=== PATIENT | female | born 1955 | race Caucasian/White ===

== ENCOUNTER 2018-08-07 12:15 | Inpatient (IN) | payer MEDICARE, BC, SELFPAY ==
[2018-08-07 13:04] VITALS: BP 118/58; PULSE 93; RESP 18; TEMP 36.8; O2SAT 93; BMI 19.5
--- NOTE | 2018-08-07 15:09 | PN_ITS ---
Subjective: 62-year-old female remote history of childhood poliomyelitis, who was initially admitted to [facility] with acute hypoxic respiratory failure secondary to community-acquired pneumonia, presented to the emergency department with worsening shortness of breath, lower extremity paresthesia and weakness which started on 07/05/18. Patient was found to be tachypneic with respiratory acidosis and was subsequently intubated and sedated with propofol. EMG done on 07/13 showed evidence of severe sensorimotor peripheral neuropathy without active demyelination suggestive of primary axonal pathology. Repeat EMG showed generalized, chronic demyelinating, sensorimotor peripheral neuropathy with secondary axonal loss and active denervation consistent with AIDP. Patient finished 7 days of plasma exchange on 07/15 and completed 5 days of IVIG on 07/16. She subsequently underwent tracheostomy and PEG tube placement and was weaned to trach collar on 07/22. Patient's hospital course was complicated with acute systolic CHF secondary to Takotsubo cardiomyopathy, status post cardiac cath on 08/04 that showed no coronary artery disease. She was also found to have a EF of 40 to 45%. On metoprolol and lisinopril. She also was found to have pneumonia and sputum culture grew Pseudomonas sp. Patient was started on IV antibiotics and switched to Levaquin for total of 7 days. Vitals here showed temp 98.3F, HR 93, BP 118/58, RR 18, Spo2 93% on room air. Vitals/I&O's: Vital Signs Temp Pulse Resp BP Pulse Ox 98.3 F 93 18 118/58 L 93 08/07/18 13:04 08/07/18 13:04 08/07/18 13:04 08/07/18 13:04 08/07/18 13:04 Oxygen Delivery Method Room Air Weight: 46.8 kg Body Mass Index (BMI) 19.5 General: Alert, Oriented x3, Cooperative HEENT: Atraumatic, PERRLA, EOMI, Normocephalic Neck: Supple, No JVD, Negative Carotid Bruits Lungs: Clear to auscultation, Normal air movement Cardiovascular: Regular rate, No murmurs Abdomen: Bowel Sounds Present, Soft, Non Tender Extremities: No edema, Capillary Refill Less than 3 Seconds Skin: No rashes, No breakdown Musculoskeletal: No Tenderness to Palpation of Joints or Extremities Neurological: Cranial nerves II-XII grossly intact Psych/Mental Status: Normal Affect, Appropriate Current Medications Acetaminophen (Tylenol Liquid) 650 mg GT Q4H PRN PRN PRN Reason: Mild Pain (0-3/10)/Headache Albuterol Sulfate (Ventolin Aerosols) 2.5 mg INHALATION Q6HWA.RT PRN PRN Reason: SHORTNESS OF BREATH Atorvastatin Calcium (Lipitor) 40 mg GT QHS CHARU Bisacodyl (Dulcolax) 10 mg RECTAL .PRN X 1 PRN PRN Reason: Constipation Calamine/Phenol (Calmoseptine Ointment) 1 applic TOPICAL TID CHARU; Protocol Enoxaparin Sodium (Lovenox) 40 mg SC DAILY@0600 CHARU Famotidine (Pepcid) 20 mg GT BID CHARU Guaifenesin (Robitussin) 20 ml GT Q6 [facility] Enteral Nutritional Formula (Jevity 1.5) 1,000 mls @ 40 mls/hr GT .Q25H CHARU Lisinopril (Zestril) 2.5 mg GT DAILY [facility] Lorazepam (Ativan) 0.5 mg GT QHS PRN PRN PRN Reason: Insomnia Magnesium Hydroxide (Milk Of Magnesia) 30 ml GT .PRN X 1 PRN PRN Reason: Constipation Metoprolol Tartrate (Lopressor (Beta Eulalio)) 12.5 mg GT Q8H [facility] Non-Formulary Medication (Gabapentin) 900 mg GT TID [facility] Non-Formulary Medication (Multivitamin With Minerals [Multiple Vitamin]) 1 each GT DAILY [facility] Oxycodone HCl (Oxyir) 5 - 10 mg GT Q4H PRN PRN PRN Reason: SEVERE PAIN (6-10/10) Senna/Docusate Sodium (Senokot-S, Augustina-Colace) 2 tablet GT BID PRN PRN Reason: Constipation Thiamine HCl (Vitamin B1) 100 mg GT DAILY [facility] Assessment/Plan 62-year-old female remote history of childhood poliomyelitis, who was initially admitted to [facility] with acute hypoxic respiratory failure secondary to community-acquired pneumonia, discharged home and presented back to the emergency department 2 days later with worsening shortness of breath, bilateral leg weakness with tingling numbness of the legs and upper extremity and emergently transferred to [facility] where she was managed as 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 Debility status post ADIP, complicated by respiratory failure, status post tracheostomy and PEG, status post plasma exchange and IVIG Admitted for inpatient rehab, continue with PT/OT/ST recommendation, continue with gabapentin 2. Acute respiratory failure status post intubation, tracheostomy, secondary to Guillain-Serrano?/APAP resolved, patient appears stable on room air, continue on breathing treatments 3. Recent acute systolic CHF, EF 40 to 50%, secondary to Takotsubo cardiomyopathy, Ischemia ruled out with negative cardiac cath finding No signs of acute exacerbation on exam, will continue to monitor with daily weights 4. Hypertension, controlled, on metoprolol, lisinopril 5. Hyperlipidemia, on statin 6. Chronic back pain, on oxycodone 7. Malnutrition, moderate, BMI 19.5, on multivitamin, status post tube feeds Nutrition consult 8. Dysphagia, status post PEG tube, speech therapy consulted 9. Former smoker, recently quit whilst being admitted 10. DVT PPx- Lovenox SC Code Visit Inpatient E&M: 14001 Subs Hosp L3
[2018-08-07 16:26] VITALS: BP 118/58; PULSE 93
[2018-08-07] MEDS: Jevity 1.5 1,000 ML 40 ML GT (16:26)
[2018-08-07] MEDS: Metoprolol Tartrate 25 MG Tablet 12.5 MG GT ×2 (16:26→20:41)
[2018-08-07] MEDS: oxyCODONE 5 MG Tablet GT (17:23)
[2018-08-07] MEDS: guaiFENesin 10 ML UDC (200MG/10ML) 20 ML GT ×2 (17:23→23:17)
[2018-08-07 18:00] VITALS: O2SAT 93
[2018-08-07 18:47] VITALS: BP 116/70; PULSE 93; RESP 18; TEMP 36.8; O2SAT 95
[2018-08-07] MEDS: Menthol/Lanolin/Calamine/Znox 113 GM Tube 1 APPLIC TOPICAL (20:40)
[2018-08-07] MEDS: Gabapentin 300 MG Capsule 900 MG GT (20:40)
[2018-08-07 20:41] VITALS: PULSE 93
[2018-08-07] MEDS: Famotidine 20 MG Tablet GT (20:41)
[2018-08-08] MEDS: oxyCODONE 5 MG Tablet GT ×4 (01:25→17:40)
[2018-08-08 06:09] LABS: Anion Gap 5 (5-15); BUN 13 mg/dL (7-18); BUN/Creat Ratio 29.5 RATIO (10-20); Calcium,Total 9.1 mg/dL (8.5-10.1); Chloride 95 mmol/L (98-107); Creatinine, Serum 0.44 mg/dL (0.55-1.02); EST Glomerular Filtration Rate 153 mL/min (>60); Est Glom Filt Rate - Afr Amer 185 mL/min (>60); Estimated Creatinine Clearance 95.43 ml/min; Glucose 128 mg/dL (74-106); Potassium 3.9 mmol/L (3.5-5.1); Sodium Level 134 mmol/L (136-145)
[2018-08-08 06:10] VITALS: PULSE 99
[2018-08-08 06:10] LABS: Absolute Lymphocyte Count 3.08 X10^3/ul (0.83-4.51); Absolute Neutrophil Count 3.9 X10^3/uL (2.0-7.7); Basophil# 0.02 X10^3/uL; Basophil% 0.2 % (0-1); Eosinophil# 0.12 X10^3/uL; Eosinophils% 1.5 % (0-5); Hematocrit 30.1 % (37-47); Hemoglobin 9.6 g/dl (12.0-15.0); Lymphocyte # 3.08 X10^3/ul (4.0); Mean Corp Hgb Conc 31.9 g/gl (32-36); Mean Corpuscular Hgb 31.5 pg (27.0-32.0); Mean Corpuscular Volume 98.7 fL (81-99); Mean Platelet Vol. 9.6 fl (6.2-12.0); Monocyte# 0.97 X10^3/uL; Neutrophil % 48.2 % (47-70); Platelet Count 374 K/mm3 (150-450); RBC Distribution Width CV 14.9 % (11.6-14.6); RBC Distribution Width SD 53.8 fl (35.1-43.9); Red Blood Count 3.05 M/mm3 (4.2-5.4); White Blood Count 8.1 K/mm3 (4.4-11.0)
[2018-08-08] MEDS: Gabapentin 300 MG Capsule 900 MG GT ×3 (06:10→21:56)
[2018-08-08] MEDS: Metoprolol Tartrate 25 MG Tablet 12.5 MG GT ×3 (06:10→21:54)
[2018-08-08] MEDS: guaiFENesin 10 ML UDC (200MG/10ML) 20 ML GT ×3 (06:11→17:40)
[2018-08-08] MEDS: Enoxaparin 40 MG/0.4 ML Syringe SC (06:11)
[2018-08-08] MEDS: Menthol/Lanolin/Calamine/Znox 113 GM Tube 1 APPLIC TOPICAL ×3 (06:11→21:00)
[2018-08-08 06:44] VITALS: BP 110/59; PULSE 99; RESP 18; TEMP 36.8; O2SAT 93
[2018-08-08 06:56] LABS: POSITIVE COUNT NO; POSITIVE DIFFERENTIAL NO; POSITIVE MORPHOLOGY NO
[2018-08-08] MEDS: Famotidine 20 MG Tablet GT ×2 (07:47→21:53)
[2018-08-08] MEDS: Thiamine Hydrochloride 100 MG Tablet GT (07:47)
[2018-08-08] MEDS: Lisinopril 2.5 MG Tablet GT (07:47)
--- NOTE | 2018-08-08 10:45 | HP.PCM.COS_ITS ---
History of Present Illness Date of Admission: 08/07/18 Chief Complaint: Debility secondary to AIDP The patient is a 62 year old F with PMH of tobacco use x 40 year history, cessation June 2018. Admitted to inpatient rehab on 08/07/2018 from debility secondary to IDP., for greater of 3 hours of therapy daily with the goal of returning back home at or near her prior level functional dependence. Patient was recently admitted to [facility] for CAP and hypoxic respiratory failure was treated with IV antibiotics and discharged on a 5-day course of Levaquin. Patient return to ER on July 05, 2018 for worsening SOA, lower extremity paresthesias and weakness. Was afebrile SPO2 98% and intact tympanic at 33 with/sniffs consistently less than -20 and ABG 7.38/49/72. She was intubated and was transferred to [facility] on 07/06/2018. 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 On 07/06/[address] done of head showed no evidence of acute cortical ischemia, mass-effect or intracranial hemorrhage. New enteric and endotracheal tubes are partially visualized. Dr. Kelly, Neurology constuled and patient was diagnosed with a AIDP. Received Plex treatments from 07/08-07/15 and IVIG from 07/16-07/20. On 07/14/2018, Portex tracheostomy size 7 was placed. On 07/15/2018, PEG placement was placed due to dysphagia. On 07/13/2018 NCS showed evidence of severe sensory and motor peripheral neuropathy without active dye limitation primary axonal pathology. Repeat of NCS/EMG on 07/29/2018 showed generalized, chronic, demyelinating sensory motor peripheral polyneuropathy, with secondary axonal loss and active denervation, consistent with AIDP. Patient weaned to trach collar on 07/22/2018. Patient had a cardiac cath on 07/08/2018 showed no CAD. Patient had a reduced EF 40 to 45%, diagnosis of Takotsubo cardiomyopathy, Dr. Wooten cadiologist was consulted and patient started on metoprolol, lisinopril and lipitor. On 07/24/2018 patient had tachycardia with tachypnea. CBC showing leukocytosis with retrocardiac opacity from chest x-ray. Sputum showed Pseudomonas putida. Blood cultures on 07/24/2018 NGTD. IV antibiotics and then changed to Levaquin p.o. x7 days, completed. Patient lives with his spouse in a trilevel home 6 steps for bedroom and bathroom. Patient was independent with all ADLs and transfers prior to hospital admission, but never did drive. 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 Acute left systolic heart failure I50.21 Acute respiratory failure J96.00 Cardiomyopathy I42.9 Dysphagia R13.10 Neuropathic pain of both legs G57.93 Allergies No Known Allergies Allergy (Verified 08/07/18 13:05) Home Medications: Ambulatory Orders Medication Instructions Recorded Atorvastatin Calcium [Lipitor] 40 mg GT DAILY 08/07/18 Famotidine [Pepcid] 20 mg GT BID 08/07/18 Gabapentin 900 mg GT TID 08/07/18 Guaifenesin 20 ml GT Q6H 08/07/18 Lisinopril 2.5 mg GT DAILY 08/07/18 Menthol/Lanolin/Calamine/Znox 1 applic TP TID 08/07/18 [Calmoseptine Ointment] Metoprolol Tartrate [Lopressor 12.5 mg GT Q8H 08/07/18 (Beta Eulalio)] Multivitamin with Minerals 1 each GT DAILY 08/07/18 [Multiple Vitamin] Thiamine HCl 100 mg GT DAILY 08/07/18 Surgical History: herniorrhaphy, - - right hip replacement, post hip fx; tubal ligation Psychiatric History: No pertinent psych hx Lives: Spouse/ Significant Other Smoking Status: Former smoker - x 40 years, cessation 07/05/2018 Tobacco Use: Cigarettes Alcohol: None Drugs: None Review of Systems Constitutional: Denies: Chills, Fever, Weight Change Eyes: Denies: Blurred vision, Cataracts, Double vision, Vision Change HEENT: Reports: Difficulty Swallowing - peg placement. Denies: Difficulty Hearing, Head Aches, Sinus Congestion, Sinus Drainage Cardiovascular: Denies: Chest Pain, Chest Pressure, Chest Tightness, Palpitations Respiratory: Denies: Cough, Shortness of Breath, Shortness of breath at rest, Shortness of breath upon exertion, Sputum production Gastrointestinal: Denies: Abdominal Pain, Nausea, Vomiting Genitourinary: Reports: Incontinence - bladder new onset. Denies: Dysuria Musculoskeletal: Denies: Joint Pain, Joint stiffness, Joint swelling, Joint Tenderness Skin: Denies: Rash, Wounds Neurological: Reports: Numbness - bilateral fingers, intermittent, Tingling. Denies: Focal weakness Psychiatric: Denies: Anxiety, Depression, Homicidal Ideations, Suicidal Ideations Hematologic/ Lymphatic: Denies: Easy Bruising, Easy Bleeding VTE Information - Inpt Only VTE Present on Admission: No VTE Mechan Device Prophylaxis: SCD's, Knee High LINDSEY Hose VTE Pharm Prophylaxis ordered?: Yes Subjective: Per nursing no issues overnight. Per patient able to tolerate therapies and denies pain, SOB, chest pain or tightness, cough, dizziness or lightheadedness. Denies further questions or concerns. - Physical Exam General: Alert, Oriented x3, Cooperative HEENT: Atraumatic, PERRLA Oral: Moist Mucosa Neck: Supple, No JVD Lungs: Clear to auscultation, Normal air movement, Diminished - bases Cardiovascular: Regular rate, Regular Rhythm Abdomen: Bowel Sounds Present, Soft, Non Tender Extremities: No clubbing, No cyanosis, No edema Skin: Ulcer/ Wound - left heel, stage I reddened, blanchable, Excoriated - cocxyx and groin Neurological: Cranial nerves II-XII grossly intact, Deep Tendon Reflexes 2+/4 and Symmetrical, Neuro grossly intact, - - Motor strength RUE 4/5, RLE 3/5. LUE 3/5, LLE 3/5. Psych/Mental Status: Normal Affect, Appropriate, Alert and oriented to time, place, person, mood and affect Vital Signs Temp Pulse Resp BP Pulse Ox 98.3 F 99 18 110/59 L 93 08/08/18 06:44 08/08/18 06:44 08/08/18 06:44 08/08/18 06:44 08/08/18 06:44 Oxygen Delivery Method Room Air Weight: 46.8 kg Body Mass Index (BMI) 19.5 Intake and Output for Last 24 Hours 08/06/18 08/07/18 08/08/18 23:59 23:59 23:59 Intake Total 150 / 150 1020 / 1020 Output Total 550 / 550 300 / 300 Balance -400 / -400 720 / 720 Laboratory Tests Past 24 Hrs 08/08/18 08/08/18 05:20 05:20 WBC 8.1 RBC 3.05 L Hgb 9.6 L Hct 30.1 L MCV 98.7 MCH 31.5 MCHC 31.9 L RDW 14.9 H RDW Differential 53.8 H Plt Count 374 MPV 9.6 Immature Gran % (Auto) 0.100 Neut % (Auto) 48.2 Lymph % (Auto) 38.0 Parmer % (Auto) 12.0 H Eos % (Auto) 1.5 Baso % (Auto) 0.2 Absolute Neuts (auto) 3.9 Absolute Lymphs (auto) 3.08 Total Counted Not Reportable Sodium 134 L Potassium 3.9 Chloride 95 L Carbon Dioxide 34.0 H Anion Gap 5 BUN 13 Creatinine 0.44 L Estim Creat Clear Calc 95.43 Est GFR (MDRD) Af Amer 185 Est GFR (MDRD) Non-Af 153 BUN/Creatinine Ratio 29.5 H Glucose 128 H Calcium 9.1 Assessment/Plan The patient is a 62 year old F with PMH of tobacco use x 40 year history, cessation June 2018. Admitted to inpatient rehab on 08/07/2018 from debility secondary to IDP., for greater of 3 hours of therapy daily with the goal of returning back home at or near her prior level functional dependence. Patient was recently admitted to [facility] for CAP and hypoxic respiratory failure was treated with IV antibiotics and discharged on a 5-day course of Levaquin. Patient return to ER on July 05, 2018 for worsening SOA, lower extremity paresthesias and weakness. Was afebrile SPO2 98% and intact tympanic at 33 with/sniffs consistently less than -20 and ABG 7.38/49/72. She was intubated and was transferred to [facility] on 07/06/2018. 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 On 07/06/[address] done of head showed no evidence of acute cortical ischemia, mass-effect or intracranial hemorrhage. New enteric and endotracheal tubes are partially visualized. Dr. Kelly, Neurology consulted and patient was diagnosed with a AIDP. Received Plex treatments from 07/08-07/15 and IVIG from 07/16-07/20. On 07/14/2018, Portex tracheostomy size 7 was placed. On 07/15/2018, PEG placement was placed due to dysphagia. On 07/13/2018 NCS showed evidence of severe sensory and motor peripheral neuropathy without active dye limitation primary axonal pathology. Repeat of NCS/EMG on 07/29/2018 showed generalized, chronic, demyelinating sensory motor peripheral polyneuropathy, with secondary axonal loss and active denervation, consistent with AIDP. Patient weaned to trach collar on 07/22/2018. Patient had a cardiac cath on 07/08/2018 showed no CAD. Patient had a reduced EF 40 to 45%, diagnosis of Takotsubo cardiomyopathy, Dr. Wooten cadiologist was consulted and patient started on metoprolol, lisinopril and lipitor. On 07/24/2018 patient had tachycardia with tachypnea. CBC showing leukocytosis with retrocardiac opacity from chest x-ray. Sputum showed Pseudomonas putida. Blood cultures on 07/24/2018 NGTD. IV antibiotics and then changed to Levaquin p.o. x7 days, completed. Patient lives with his spouse in a trilevel home 6 steps for bedroom and bathroom. Patient was independent with all ADLs and transfers prior to hospital admission, but never did drive. Plan - PT for mobility - OT for ADLs - ST for dysphagia - Analgesics as needed - AIDP Plex treatment 07/08-07/15 and IVIG treatment 07/16-07/20/2018 - Acute respiratory failure Portex tracheostomy size 7 on 07/14/2018 and trach collar on 07/22/2018. Pulmonary consult - Takotsubo Cardiomyopathy on metoprolol, lisinopril and lipitor - Dysphagia peg placement on 07/15/2018, on Jevity and H2O flushes. Instructor [employer] consult - Polyneuropathy on GBN - Left heel pressure Wound Stage I on admission- Off loading - GI/DVT prophylaxis pepcid/lovenox, knee high lindsey hose, SCDs - Bowel protocol - Fall precautions - Medical management per Hospitalist- consult - F/U with PCP, cardiology, neurology
[2018-08-08 12:29] LABS: AST(SGOT) 26 U/L (15-37); Alanine Aminotransfer ALT/SGPT 33 U/L (13-56); Albumin, Serum 2.3 g/dL (3.2-5.0); Alkaline Phosphatase 103 U/L (45-117); Bilirubin, Direct 0.13 mg/dL (0.00-0.30); Cholesterol 107 mg/dL (200); Globulin 4.8 g/dL (2.2-4.2); High Density Lipoprotein 31 mg/dL; Protein, Total 7.1 g/dL (6.4-8.2); Triglycerides 239 mg/dL; Very Low Density Lipoprotein 48 mg/dL (5-40)
--- NOTE | 2018-08-08 14:29 | PCM.RU.PYE ---
Admission Information Status Changes from Prescreening?: No changes Identified Actual Problem List:: Mobility Impaired, Self Care Deficit Potential Problem List:: DVT, Bleeding, Infection, UTI, Aspiration, Falls, Skin Integrity, Depression Risk of Complications DVT: LMWH, JUDY Hose, Sequential Compression Device Bleeding: Monitor Lab Values, Nursing to Teach Precautions for anti-coagulation therapy., Wound, if applicable, to be assessed every shift., Stroke patients assessed for lethargy or change in status. Infection: Clinical Staff to Monitor for S/S of infection:, S/S of infection include fever, redness, warmth, etc. Urinary Tract Infection: Monitor for frequency, burning, discomfort, or incontinence., Nursing will obtain urine sample for urinalysis and C&S when ordered. Aspiration: Clinical staff will monitor for coughing, drooling, congestion., Speech will evaluate swallowing and dsyphasia., Nursing will monitor patient swallowing during meals. Falls: Patient will be evaluated for Fall Precautions, Patient will be placed on Fall Precautions as indicated per protocol. Skin Breakdown: Nursing will assess skin daily using assessment tool., Nursing will place on Skin Breakdown Precautions as indicated. Pain: Clinical staff will assess patient's pain level per protocol., Medications will be given, if needed, and the pain level reassessed., Other methods: Massage, distraction, decrease stimulus, etc. used PRN. Plan of Care Patient requires physician specializing in physical medicine and rehab oversight to provide close medical supervision of rehab issues including: Pain Management, Sleep Problems, Bowel and Bladder, Medical and co-morbidity Management, DVT prophylaxis, Rehabilitation Leadership, Coordination of treatment team Patient needs Physical Therapy: For a minimum of 1 hour, At least 5 out of 7 days Patient needs Physical Therapy to improve:: Mobility, Mobility, Mobility, Strengthening, Transfers, Stretching, ROM, Endurance, Stairs, Gait, Balance Patient needs Occupational Therapy: For a minimum of 1 hour, At least 5 out of 7 days Patient needs Occupational Therapy to improve ADL's incl.: Eating, Grooming, Bathing, Dressing, Toileting, Toilet transfers, Community Reintegration, Higher functioning activities, Household tasks, Adaptive Equipment, Splinting, Other activities as determined Patient requires speech therapy: For a minimum of 1 hour, At least 5 out of 7 days Patient requires speech therapy for: Swallowing, Cognition, Language Skills, Compensatory Strategies Patient requires 24/ Rehabilitation Nursing for: Pain Issues, Identifying and preventing risk factors, Monitoring and reporting current medical conditions, Assisting with ambulation, transfer, and all ADL's, Teaching patients about disease process and medications, Family teaching, Providing safe environment, Bowel and Bladder Issues, Skin integrity, Medication Management Patient needs Shuttle Veneering Supervisor/ Case Management for: Discharge Planning, Arranging Home Equipment or Services, Family Interventions Patient needs Dietary and Nutrition Services for: Adequate Nutrition, Nutritional Supplements, Nutritional Education Goals Patient will remain: free from falls, or injury at time of discharge. Patient will perform bed mobility at: MOD I level of assist. Patient will complete transfers from bed to chair at: MOD I level of assist. Patient will ambulate: 100 feet, with MOD I assist, with LRD Patient will complete upper body dressing at: MOD I level of assist. Patient will complete lower body dressing at: MOD I level of assist. Patient will complete toileting at: MOD I level of assist. Patient will perform bathing at: MOD I level of assist. Patient will complete grooming at: MOD I level of assist. Patient will complete home management skills at: MOD I level of assist. Patient will achieve: 12 stairs, at MOD I assist Patient will have pain level of: of 3 or less Patient's skin will: remain intact, free from infection. Patient will receive: adequate nutrition. Discharge Planning Pt Prognosis for Sig. Practical Improv. w/in Reasonable Time: Good Estimated Length of stay (days): 16 Anticipated D/C Destination: Home with Outpt Therapy Was Preadmission Assessment Accurate?: Yes
[2018-08-08 14:41] VITALS: PULSE 77
[2018-08-08] MEDS: Jevity 1.5. 1,000 ML Bottle 1000 ML GT (18:07)
[2018-08-08 20:04] VITALS: BP 110/67; PULSE 88; RESP 20; TEMP 36.7; O2SAT 95
[2018-08-08 21:54] VITALS: PULSE 88
[2018-08-08] MEDS: Atorvastatin Calcium 40 MG Tablet GT (21:55)
[2018-08-09] VITALS (7 sets, daily range): BP systolic 92–105; BP diastolic 50–58; PULSE 84–98; RESP 16–98; TEMP 36.8–37; O2SAT 91–97
[2018-08-09] MEDS: guaiFENesin 10 ML UDC (200MG/10ML) 20 ML GT ×3 (00:21→11:38)
[2018-08-09] MEDS: oxyCODONE 5 MG Tablet GT ×4 (01:07→20:47)
[2018-08-09] MEDS: Enoxaparin 40 MG/0.4 ML Syringe SC (05:19)
[2018-08-09] MEDS: Menthol/Lanolin/Calamine/Znox 113 GM Tube 1 APPLIC TOPICAL ×3 (05:22→20:51)
[2018-08-09] MEDS: Gabapentin 300 MG Capsule 900 MG GT ×3 (05:23→20:49)
[2018-08-09] MEDS: Metoprolol Tartrate 25 MG Tablet 12.5 MG GT ×3 (05:24→20:51)
[2018-08-09] MEDS: Lisinopril 2.5 MG Tablet GT (10:19)
[2018-08-09] MEDS: Famotidine 20 MG Tablet GT ×2 (10:19→20:51)
[2018-08-09] MEDS: Thiamine Hydrochloride 100 MG Tablet GT (10:19)
--- NOTE | 2018-08-09 10:37 | PCM.CONS.PUL ---
Reason for Consult Date of Consultation: 08/09/18 Reason for Consultation: Tracheostomy decannulation History of Present Illness: The patient is a 62 year old female, with a history as outlined below, who was admitted to the rehab unit on August 07 following a prolonged hospitalization at in [place], during which time, she was diagnosed with AIDP. The patient's initial presenting symptoms included generalized weakness and swallowing difficulties. The patient was evaluated by Neurology and did require plasmapheresis, coupled with IVIG. On July 14, the patient did require tracheostomy placement. Although initially requiring ventilatory support, the patient was able to be weaned to trach collar on July 22. The patient has no history of any underlying lung pathology. She has not required ventilatory support for quite some time. She is currently maintaining oxygen saturations on room air. Secretions have not been an issue and the patient is able to mount an adequate cough response. Since her arrival to the , the patients cuff has been deflated and she has been capped with a passy wanda valve. The patient denies SOB. She is working aggressively with physical therapy and has a swallow evaluation planned with speech therapy at some point today. 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 Acute left systolic heart failure I50.21 Acute respiratory failure J96.00 Cardiomyopathy I42.9 Dysphagia R13.10 Neuropathic pain of both legs G57.93 Allergies No Known Allergies Allergy (Verified 08/07/18 13:05) Home Medications: Ambulatory Orders Medication Instructions Recorded Atorvastatin Calcium [Lipitor] 40 mg GT DAILY 08/07/18 Famotidine [Pepcid] 20 mg GT BID 08/07/18 Gabapentin 900 mg GT TID 08/07/18 Guaifenesin 20 ml GT Q6H 08/07/18 Lisinopril 2.5 mg GT DAILY 08/07/18 Menthol/Lanolin/Calamine/Znox 1 applic TP TID 08/07/18 [Calmoseptine Ointment] Metoprolol Tartrate [Lopressor 12.5 mg GT Q8H 08/07/18 (Beta Eulalio)] Multivitamin with Minerals 1 each GT DAILY 08/07/18 [Multiple Vitamin] Thiamine HCl 100 mg GT DAILY 08/07/18 Surgical History: herniorrhaphy, - - right hip replacement, post hip fx; tubal ligation Psychiatric History: No pertinent psych hx Lives: Spouse/ Significant Other Smoking Status: Former smoker - x 40 years, cessation 07/05/2018 Tobacco Use: Cigarettes Alcohol: None Drugs: None Review of Systems Constitutional: Denies: Chills, Fever Eyes: Denies: Blurred vision, Double vision HEENT: Denies: Head Aches, Sinus Congestion, Sinus Drainage Cardiovascular: Denies: Chest Pain, Palpitations Respiratory: Denies: Cough, Shortness of Breath Gastrointestinal: Denies: Abdominal Pain, Nausea, Vomiting Genitourinary: Denies: Dysuria Musculoskeletal: Denies: Joint Pain, Joint Tenderness Skin: Denies: Rash, Wounds Neurological: Denies: Numbness, Tingling, Focal weakness Psychiatric: Denies: Anxiety, Depression, Homicidal Ideations, Suicidal Ideations Hematologic/ Lymphatic: Denies: Easy Bruising, Easy Bleeding Objective: The patient's most recent lab work, culture data and imaging studies have all been personally reviewed. - Physical Exam General: Alert, Oriented x3, Cooperative, No apparent distress, - - Sitting in bedside recliner. HEENT: Atraumatic, PERRLA, Normocephalic Oral: No Gingival or Mucosal Lesions/ Ulcerations Neck: Supple, No Nodes, Trachea Midline, - - #7.0 Portex trach in situ with passy-wanda valve in place. No secretions noted. No stridor. Phonation is good. Effective cough present. Cardiovascular: Regular rate, Regular Rhythm, Normal S1, Normal S2, No murmurs Abdomen: Bowel Sounds Present, Soft, Non Tender, - - +PEG Extremities: No clubbing, No cyanosis, No edema Skin: No breakdown Musculoskeletal: No Tenderness to Palpation of Joints or Extremities Lymphatic: No Cervical, Supraclavicular, or Inguinal Adenopathy Neurological: Neuro grossly intact Psych/Mental Status: Normal Affect, Appropriate Vital Signs Temp Pulse Resp BP Pulse Ox 98.2 F 97 18 105/58 L 94 08/09/18 08:14 08/09/18 08:14 08/09/18 08:14 08/09/18 08:14 08/09/18 08:14 Oxygen Delivery Method Room Air Weight: 100 lb Body Mass Index (BMI) 19.5 Intake and Output for Last 24 Hours 08/07/18 08/08/18 08/09/18 23:59 23:59 23:59 Intake Total 150 / 150 2070 / 2070 1324 / 1324 Output Total 550 / 550 1000 / 1000 250 / 250 Balance -400 / -400 1070 / 1070 1074 / 1074 Laboratory Tests Past 24 Hrs 08/08/18 05:20 Total Bilirubin 0.40 Direct Bilirubin 0.13 AST 26 ALT 33 Alkaline Phosphatase 103 Total Protein 7.1 Albumin 2.3 L Globulin 4.8 H Triglycerides 239 H Cholesterol 107 LDL Cholesterol 28 VLDL Cholesterol 48 H HDL Cholesterol 31 L Assessment/Plan RECOMMENDATIONS: 1. Proceed with decannulation. 2. Maintain occlusive dressing while the patient's tracheostomy stoma heals. 3. Bronchodilators as needed. 4. Please call with any questions. IMPRESSIONS: 1. Chronic respiratory failure During the patient's recent prolonged hospitalization, she did require tracheostomy placement due to neuromuscular weakness in the setting of AIDP. This has all improved. The patient has not required any form of ventilatory support for quite some time. Her cuff has been deflated and she has a essentially been on a capping trial since her transfer to the rehab unit, with a passy-wanda valve in place. The patient has no significant secretion production. She does have an effective cough and is maintaining appropriate oxygen saturations on room air. With all of this in mind, I do feel that the patient can be decannulated today. I personally supervised respiratory therapy performing the patient's bedside decannulation. She tolerated the procedure well. Would recommend continuing to place an occlusive dressing while the patient's stoma heals. 2. Personal history of tobacco dependency Bronchodilators can be utilized, if needed. 3. Physical debility secondary to AIDP Defer management to neurology and respective therapy services. Code Visit Inpatient E&M: 29044 Init Hosp L3
--- NOTE | 2018-08-09 11:00 | SP.MBSS_ITS ---
PRIMARY / SECONDARY DIAGNOSIS: Dysphagia REFERRING PHYSICIAN: Dr. Michaud CURRENT DIET: NPO w/ PEG as primary source of nutrition/hydration DENTITION: Natural dentition; Many teeth missing w/ patient indicating that two of her front teeth were knocked out during intubation. MENTAL STATUS: WF for participation in MBS RESPIRATORY STATUS: tracheostomy tube decannulated 08/09/2018 prior to MBS; oxygenating on room air PREVIOUS MODIFIED BARIUM SWALLOW STUDY: n/a REASON FOR REFERRAL: The patient is a 62 year old female who was admitted to [facility] Inpatient Rehab Unit on 08/07/2018 w/ a diagnosis of debility d/t Inflammatory Demyelinating Polyneuropathy, likely AMS ATN variant of GBS. On 07/14/2018, Portex tracheostomy size 7 was placed. On 07/15/2018, PEG placement was placed due to dysphagia. Patient weaned to trach collar on 07/22/2018 w/ initiation of a Passy Melida Speaking Valve shortly thereafter. Portex #7 trach was decannulated on 08/09/2018 prior to MBS. MBS was recommended to objectively assess swallow function under fluoroscopy prior to advancing d/t increased risk for silent aspiration given prolonged intubation w/ trach placement. MEDICAL HISTORY: AIDP (acute inflammatory demyelinating polyneuropathy), Acute left systolic heart failure, Acute respiratory failure, Cardiomyopathy, Dysphagia, Neuropathic pain of both legs and Tobacco use x 40 year history, cessation June 2018 STUDY FINDINGS: Patient participated in a Modified Barium Swallow (MBS) study on 08/09/2018. Dr. Loyd was the radiologist present for this evaluation. This study was recorded in the lateral view and images were sent to PACs for storage. The following consistencies were presented to this patient for analysis of oropharyngeal swallow function: honey thickened liquids and pudding. Results of the MBS are as follows: PENETRATION / ASPIRATION SCALE (MEHTA): 1 = does not enter airway 2 = enters airway/above vocal folds/ejected 3 = enters airway/above vocal folds/not ejected 4 = enters airway/contacts vocal folds/ejected 5 = enters airway/contacts vocal folds/not ejected 6 = enters airway/below vocal folds/ejected 7 = enters airway/below vocal folds/not ejected despite effort 8 = enters airway/below vocal folds/no effort PENETRATION / ASPIRATION SCALE (SCORE): 1. Thin liquid teaspoon: 1 2. Thin liquid teaspoon: 1 3. Thin liquid cup: 1 4. Thin liquid cup sequential swallow: 1 5. Thin liquid straw: 1 6. Puddin 7. Cookie: 1 8. Thin liquid cup: 1 IMPRESSION ORAL PHASE CHARACTERIZED BY: LABIAL SEAL: no labial escape TONGUE CONTROL DURING BOLUS MANIPULATION: cohesive bolus between tongue to palatal seal BOLUS PREPARATION / MASTICATION: slow prolonged chewing/mashing with complete recollection BOLUS TRANSPORT / LINGUAL MOTION: slowed tongue motion ORAL RESIDUE: residue collection on oral structures PHARYNGEAL PHASE CHARACTERIZED BY: INITIATION OF PHARYNGEAL SWALLOW: bolus head in valleculae at first hyoid excursion SOFT PALATE ELEVATION: no bolus between soft palate and pharyngeal wall LARYNGEAL ELEVATION: partial superior movement of thyroid cartilage/partial approximation of arytenoids cartilage to epiglottic petiole ANTERIOR HYOID EXCURSION: partial anterior movement EPIGLOTTIC MOVEMENT: partial epiglottic inversion LARYNGEAL VESTIBULE CLOSURE AT HEIGHT OF SWALLOW: complete laryngeal vestibule closure with no air/contrast in laryngeal vestibule PHARYNGEAL STRIPPING WAVE: pharyngeal stripping wave present / diminished PHARYNGOESOPHAGEAL SEGMENT OPENING: complete distension and complete duration with no obstruction of flow TONGUE BASE RETRACTION: narrow column of contrast between tongue base and posterior pharyngeal wall PHARYNGEAL RESIDUE: collection of residue within or on pharyngeal structures ESOPHAGEAL PHASE CHARACTERIZED BY: ESOPHAGEAL BOLUS CLEARANCE IN THE UPRIGHT POSITION: complete clearance; esophageal coating EFFECTS OF TREATMENT STRATEGIES ATTEMPTED: Double swallow = effective Liquid chaser = effective INTERPRETATION OF RESULTS Patient presents with mild oropharyngeal dysphagia (R13.12) secondary to acute inflammatory demyelinating polyneuropathy s/p intubation/trace placement (decannulated 08/09/2018). Oral phase primarily marked by mild mastication inefficiency w/ prolonged chewing required to adequately break down solid textures boluses d/t limited dentition. A collection of residue remained on the posterior lingual surface post deglutition attributed to a reduction in tongue base retraction/pharyngeal contraction. Pharyngeal phase primarily marked by slight delay in pharyngeal swallow onset timing w/ bolus intermittently reaching the valleculae, this did not impact swallow function or airway protection. Reduced hyolaryngeal excursion (minimal anterior hyoid movement/reduced thyroid elevation) noted, although it did not impact laryngeal vestibule closure/airway protection. Reduced pharyngeal motility / pharyngeal attributed to incomplete tongue base retraction and slightly diminished posterior pharyngeal stripping wave action resulting in pharyngeal retention on the pharyngeal portion of the tongue, within the valleculae and trace within the pyriforms. The patient was able to clear pharyngeal residue effectively w/ use of a dry swallow and/or a liquid wash. No penetration/aspiration appreciated throughout consistencies trialed. RECOMMENDATIONS DIET TEXTURE/LIQUID CONSISTENCY: mechanical soft textures/thin liquids COMPENSATORY STRATEGIES: Seated upright at 90 degrees during PO intake, alternate bites/sips, use dry swallow and liquid wash as needed to clear oral/pharyngeal stasis NEED FOR ADDITIONAL SKILLED SPEECH LANGUAGE INTERVENTION: yes RATIONALE FOR TREATMENT: This patient requires intensive skilled speech-language intervention targeting diet texture management w/ advancement as appropriate, training and implementation of recommended compensatory strategies, and instruction w/ oropharyngeal strengthening exercises targeting pharyngeal motility, base of tongue strength, pharyngeal stripping wave, and hyolaryngeal excursion. ADDITIONAL COMMENTS/RECOMMENDATIONS: Results and recommendations were discussed with the Patient immediately following MBS completion and images were reviewed to improve patient understanding of dysphagia identified and need for continued oropharyngeal dysphagia treatment. The patient verbalizing understanding and agreement with all recommendations and education provided. IMAGE COUNT: [id number]
--- NOTE | 2018-08-09 12:47 | PCM.PN.NEU ---
Subjective: Per nursing no issues overnight, tolerating Jevity via peg. Swallowing study completed today by ST, and diet increased to mechanical soft with thin liquids. Spray Drier Operator aware and recommendations per Jevity and H2O flushes. Patient decannulated today by Dr. Mccloud, tolerating well without trach, in no acute distress. Per patient tolerating therapies and denies further questions or concerns. - Physical Exam General: Alert, Oriented x3, Cooperative HEENT: Atraumatic Oral: Moist Mucosa Neck: Supple, No JVD Lungs: Clear to auscultation, Normal air movement, Diminished - lower bases Cardiovascular: Regular rate, Regular Rhythm Abdomen: Bowel Sounds Present, Soft, Non Tender, - - peg tube Skin: Incision - post trach site, covered with DSD Neurological: Cranial nerves II-XII grossly intact, Neuro grossly intact, - - Motor strength RUE 5/5 and RLE 4/5, LUE and LLE 4/5 Psych/Mental Status: Normal Affect, Appropriate, Alert and oriented to time, place, person, mood and affect Vital Signs Temp Pulse Resp BP Pulse Ox 98.2 F 97 18 105/58 L 91 08/09/18 08:14 08/09/18 08:14 08/09/18 08:14 08/09/18 08:14 08/09/18 12:07 Oxygen Delivery Method Room Air Weight: 45.359 kg Body Mass Index (BMI) 19.5 Intake and Output for Last 24 Hours 08/07/18 08/08/18 08/09/18 23:59 23:59 23:59 Intake Total 150 / 150 2070 / 2070 1524 / 1524 Output Total 550 / 550 1000 / 1000 250 / 250 Balance -400 / -400 1070 / 1070 1274 / 1274 Medical Necessity - Tobacco Use Smoking Status: Former smoker - x 40 years, cessation 07/05/2018 Tobacco Use: Cigarettes Assessment/Plan The patient is a 62 year old F with PMH of tobacco use x 40 year history, cessation June 2018. 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 Patient was recently admitted to [facility] for CAP and hypoxic respiratory failure was treated with IV antibiotics and discharged on a 5-day course of Levaquin. Patient return to ER on July 05, 2018 for worsening SOA, lower extremity paresthesias and weakness. Was afebrile SPO2 98% and intact tympanic at 33 with/sniffs consistently less than -20 and ABG 7.38/49/72. She was intubated and was transferred to [facility] on 07/06/2018. 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 On 07/06/[address] done of head showed no evidence of acute cortical ischemia, mass-effect or intracranial hemorrhage. New enteric and endotracheal tubes are partially visualized. Dr. Kelly, Neurology consulted and patient was diagnosed with a AIDP. Received Plex treatments from 07/08-07/15 and IVIG from 07/16-07/20. On 07/14/2018, Portex tracheostomy size 7 was placed. On 07/15/2018, PEG placement was placed due to dysphagia. On 07/13/2018 NCS showed evidence of severe sensory and motor peripheral neuropathy without active dye limitation primary axonal pathology. Repeat of NCS/EMG on 07/29/2018 showed generalized, chronic, demyelinating sensory motor peripheral polyneuropathy, with secondary axonal loss and active denervation, consistent with AIDP. Patient weaned to trach collar on 07/22/2018. Patient had a cardiac cath on 07/08/2018 showed no CAD. Patient had a reduced EF 40 to 45%, diagnosis of Takotsubo cardiomyopathy, Dr. Wooten cadiologist was consulted and patient started on metoprolol, lisinopril and lipitor. On 07/24/2018 patient had tachycardia with tachypnea. CBC showing leukocytosis with retrocardiac opacity from chest x-ray. Sputum showed Pseudomonas putida. Blood cultures on 07/24/2018 NGTD. IV antibiotics and then changed to Levaquin p.o. x7 days, completed. Patient lives with his spouse in a trilevel home 6 steps for bedroom and bathroom. Patient was independent with all ADLs and transfers prior to hospital admission, but never did drive. Plan - PT for mobility - OT for ADLs - ST for dysphagia - Analgesics as needed - AIDP Plex treatment 07/08-07/15 and IVIG treatment 07/16-07/20/2018 - Acute respiratory failure Portex tracheostomy size 7 on 07/14/2018 and trach collar on 07/22/2018, Decannulated on 08/09/2018 by Field Service Tech - Takotsubo Cardiomyopathy on metoprolol, lisinopril and lipitor - Dysphagia peg placement on 07/15/2018, on Jevity and H2O flushes. Daily weight and I/O. Swallowing evaluation 08/09/18 - Diet: Mechanical soft, thin liquids. Monitor meal percentage intake and Jevity decreased per bail bonding agent recommendations- Spray Drier Operator consult - Polyneuropathy on GBN - Left heel pressure Wound Stage I on admission- Off loading - GI/DVT prophylaxis pepcid/lovenox, knee high lindsey hose, SCDs - Bowel protocol - Fall precautions - Medical management per Hospitalist- consult - F/U with PCP, cardiology, neurology
--- NOTE | 2018-08-09 12:51 | PN.NEURO_ITS ---
Subjective: Per nursing no issues overnight, tolerating Jevity via peg. Swallowing study completed today by ST, and diet increased to mechanical soft with thin liquids. Robotic Welding Operator aware and recommendations per Jevity and H2O flushes. Patient decannulated today by Dr. Mccloud, tolerating well without trach, in no acute distress. Per patient tolerating therapies and denies further questions or concerns. - Physical Exam General: Alert, Oriented x3, Cooperative HEENT: Atraumatic Oral: Moist Mucosa Neck: Supple, No JVD Lungs: Clear to auscultation, Normal air movement, Diminished - lower bases Cardiovascular: Regular rate, Regular Rhythm Abdomen: Bowel Sounds Present, Soft, Non Tender, - - peg tube Skin: Incision - post trach site, covered with DSD Neurological: Cranial nerves II-XII grossly intact, Neuro grossly intact, - - Motor strength RUE 5/5 and RLE 4/5, LUE and LLE 4/5 Psych/Mental Status: Normal Affect, Appropriate, Alert and oriented to time, place, person, mood and affect Vital Signs Temp Pulse Resp BP Pulse Ox 98.2 F 97 18 105/58 L 91 08/09/18 08:14 08/09/18 08:14 08/09/18 08:14 08/09/18 08:14 08/09/18 12:07 Oxygen Delivery Method Room Air Weight: 45.359 kg Body Mass Index (BMI) 19.5 Intake and Output for Last 24 Hours 08/07/18 08/08/18 08/09/18 23:59 23:59 23:59 Intake Total 150 / 150 2070 / 2070 1524 / 1524 Output Total 550 / 550 1000 / 1000 250 / 250 Balance -400 / -400 1070 / 1070 1274 / 1274 Medical Necessity - Tobacco Use Smoking Status: Former smoker - x 40 years, cessation 07/05/2018 Tobacco Use: Cigarettes Assessment/Plan The patient is a 62 year old F with PMH of tobacco use x 40 year history, cessation June 2018. 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 Patient was recently admitted to [facility] for CAP and hypoxic respiratory failure was treated with IV antibiotics and discharged on a 5-day course of Levaquin. Patient return to ER on July 05, 2018 for worsening SOA, lower extremity paresthesias and weakness. Was afebrile SPO2 98% and intact tympanic at 33 with/sniffs consistently less than -20 and ABG 7.38/49/72. She was intubated and was transferred to [facility] on 019. 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 On 07/06/[address] done of head showed no evidence of acute cortical ischemia, mass-effect or intracranial hemorrhage. New enteric and endotracheal tubes are partially visualized. Dr. Kelly, Neurology consulted and patient was diagnosed with a AIDP. Received Plex treatments from 07/08-07/15 and IVIG from 07/16-07/20. On 07/14/2018, Portex tracheostomy size 7 was placed. On 07/15/2018, PEG placement was placed due to dysphagia. On 07/13/2018 NCS showed evidence of severe sensory and motor peripheral neuropathy without active dye limitation primary axonal pathology. Repeat of NCS/EMG on 07/29/2018 showed generalized, chronic, demyelinating sensory motor peripheral polyneuropathy, with secondary axonal loss and active denervation, consistent with AIDP. Patient weaned to trach collar on 07/22/2018. Patient had a cardiac cath on 07/08/2018 showed no CAD. Patient had a reduced EF 40 to 45%, diagnosis of Takotsubo cardiomyopathy, Dr. Wooten cadiologist was consulted and patient started on metoprolol, lisinopril and lipitor. On 07/24/2018 patient had tachycardia with tachypnea. CBC showing leukocytosis with retrocardiac opacity from chest x-ray. Sputum showed Pseudomonas putida. Blood cultures on 07/24/2018 NGTD. IV antibiotics and then changed to Levaquin p.o. x7 days, comple lindsey. Patient lives with his spouse in a trilevel home 6 steps for bedroom and bathroom. Patient was independent with all ADLs and transfers prior to hospital admission, but never did drive. Plan - PT for mobility - OT for ADLs - ST for dysphagia - Analgesics as needed - AIDP Plex treatment 07/08-07/15 and IVIG treatment 07/16-07/20/2018 - Acute respiratory failure Portex tracheostomy size 7 on 07/14/2018 and trach collar on 07/22/2018, Decannulated on 08/09/2018 by Manager Voice - Takotsubo Cardiomyopathy on metoprolol, lisinopril and lipitor - Dysphagia peg placement on 07/15/2018, on Jevity and H2O flushes. Daily weight and I/O. Swallowing evaluation 08/09/18 - Diet: Mechanical soft, thin liquids. Monitor meal percentage intake and Jevity decreased per recreational aide recommendations- Robotic Welding Operator consult - Polyneuropathy on GBN - Left heel pressure Wound Stage I on admission- Off loading - GI/DVT prophylaxis pepcid/lovenox, knee high lindsey hose, SCDs - Bowel protocol - Fall precautions - Medical management per Hospitalist- consult - F/U with PCP, cardiology, neurology
--- NOTE | 2018-08-09 13:00 | RAD_ITS ---
STUDY: SWALLOWING STUDY REASON FOR EXAM: Female, 62 years old. Dysphagia. TECHNIQUE: The examination was performed with Speech Pathology in attendance. Under fluoroscopic observation, the patient ingested thin barium, thick barium, barium pudding, and barium coated cracker. FLUOROSCOPY TIME: 1:47 minutes/seconds. 1739 fluoroscopic images are obtained. RADIOLOGIST INVOLVEMENT: Radiologist was present and providing direct supervision. COMPARISON: None. FINDINGS: The following was observed during swallowing of the various mixtures of barium: Thin Barium: There was no evidence of aspiration or laryngeal penetration. Barium Pudding: There was no evidence of aspiration or laryngeal penetration. Barium Coated Cracker: There was no evidence of aspiration or laryngeal penetration. RAD/Swallowing Function w/Video IMPRESSION: Normal tailored barium swallow study. No evidence of increased risk for aspiration. The swallow study findings were discussed with the patient by the speech pathologist at the conclusion of the examination. Please see speech pathology report for more information and recommendations. Electronically Signed: Bassem Loyd, at 12:25 EDT , Service support ,
[2018-08-09] MEDS: Atorvastatin Calcium 40 MG Tablet GT (20:50)
[2018-08-09] MEDS: Jevity 1.5 1,000 ML 85 ML GT (20:53)
[2018-08-10] VITALS (8 sets, daily range): BP systolic 88–98; BP diastolic 50–56; PULSE 88–102; RESP 14–18; TEMP 36.7–36.9; O2SAT 94–95
[2018-08-10] MEDS: guaiFENesin 10 ML UDC (200MG/10ML) 20 ML GT ×2 (00:41→05:29)
[2018-08-10] MEDS: oxyCODONE 5 MG Tablet GT (03:22)
[2018-08-10] MEDS: Menthol/Lanolin/Calamine/Znox 113 GM Tube 1 APPLIC TOPICAL ×3 (05:27→21:45)
[2018-08-10] MEDS: Gabapentin 300 MG Capsule 900 MG GT (05:28)
[2018-08-10] MEDS: Enoxaparin 40 MG/0.4 ML Syringe SC (05:28)
[2018-08-10] MEDS: Metoprolol Tartrate 25 MG Tablet 12.5 MG GT (05:37)
--- NOTE | 2018-08-10 07:38 | PN_ITS ---
Subjective: Late entry for 08/09/2018 The patient is a 62-year-old female admitted to the rehab unit for a IDP. She had 7 days of plasma exchange and completed 5 days of IVIG. She had tracheostomy and PEG tube placement and was weaned to a trach collar on 07/22. Hospital course was complicated by acute systolic congestive heart failure secondary to Takotsubo cardiomyopathy. Cardiac catheterization was performed on 08/04 and the patient had no significant coronary artery disease. The ejection fraction was decreased at 40 to 45%. Afebrile. Vital signs stable. Pulse ox is 97% on room air. She tells me she was approved for a diet this afternoon and that she is swallowing well. She had a modified barium swallow on 08/09/2018 and I reviewed the speech therapist note. There was no penetration/aspiration appreciated with all the food consistencies trialed. She was placed on a regular diet. She denies chest pain, shortness of breath, cough, abdominal pain, nausea, vomiting. She feels she completely empties her bladder. Denies any bowel complaints. - Physical Exam General: Alert, Oriented x3, Cooperative, No apparent distress, - - She is in her room visiting with her family. HEENT: Atraumatic, PERRLA, EOMI, Normocephalic Oral: Moist Mucosa, No Gingival or Mucosal Lesions/ Ulcerations Neck: Supple, - - Trach site is covered with a gauze. No purulent discharge. Cardiovascular: Regular rate, Regular Rhythm, Normal S1, Normal S2, No murmurs Abdomen: Bowel Sounds Present, Soft, Non Tender, Non-Distended, - - The PEG site has redness, purulent discharge or odor. Extremities: No clubbing, No cyanosis, No edema Skin: No rashes, No breakdown Psych/Mental Status: Normal Affect, Appropriate Vital Signs Temp Pulse Resp BP Pulse Ox 98.6 F 89 98 H 92/50 L 94 08/09/18 21:39 08/10/18 05:37 08/09/18 22:00 08/09/18 21:39 08/10/18 06:50 Oxygen Delivery Method Room Air Weight: 100 lb 15.547 oz Body Mass Index (BMI) 19.5 Intake and Output for Last 24 Hours 08/08/18 08/09/18 08/10/18 23:59 23:59 23:59 Intake Total 2069 2899 / 2899 550 / 550 Output Total 1000 / 1000 1750 / 1750 400 / 400 Balance 1070 / 1070 1149 / 1149 150 / 150 Medical Necessity - Tobacco Use Smoking Status: Former smoker - x 40 years, cessation 07/05/2018 Tobacco Use: Cigarettes Assessment/Plan Impressions 1. ADIP 2. oropharyngeal dysphagia 3. PEG present 4. recent tracheostomy for acute respiratory failure requiring intubation - currently on room air 5. Recent acute systolic congestive heart failure with an EF of 40 to 50% secondary to Takotsubo's cardiomyopathy. Cardiac cath negative for ischemia 6. Hyperlipidemia 7. Chronic back pain on oxycodone 8. Malnutrition 9. Former smoker-recently quit Continue current tx Code Visit Inpatient E&M: 85879 Subs Hosp L2
[2018-08-10] MEDS: Thiamine Hydrochloride 100 MG Tablet GT (10:21)
[2018-08-10] MEDS: Famotidine 20 MG Tablet GT (10:21)
[2018-08-10 11:38] LABS: Anion Gap 3 (5-15); BUN 14 mg/dL (7-18); BUN/Creat Ratio 30.2 RATIO (10-20); Calcium,Total 9.4 mg/dL (8.5-10.1); Chloride 95 mmol/L (98-107); Creatinine, Serum 0.46 mg/dL (0.55-1.02); EST Glomerular Filtration Rate 144 mL/min (>60); Est Glom Filt Rate - Afr Amer 174 mL/min (>60); Estimated Creatinine Clearance 89.33 ml/min; Glucose 80 mg/dL (74-106); Potassium 4.2 mmol/L (3.5-5.1); Sodium Level 134 mmol/L (136-145)
[2018-08-10] MEDS: Gabapentin 300 MG Capsule 900 MG PO ×2 (13:28→21:51)
--- NOTE | 2018-08-10 15:15 | NURSING ---
Dr Harley and Marissa Grissom SILK FOLDER aware of low BP today and patient is asymptomatic.
[2018-08-10] MEDS: oxyCODONE 5 MG Tablet PO ×2 (16:01→21:51)
--- NOTE | 2018-08-10 16:06 | PCM.PN.NEU ---
Subjective: Per nursing no issues overnight. Patient ambulated > 100 ft with walker x min assist this am with therapy, tolerating therapies well. Patient is tolerating mechanical soft diet with thin liquids. No s/sx of aspiration noted. Prior to hospitalizations patient was not on antihypertensives. Hospitalist aware of lower blood pressure readings and will adjust as needed per nursing staff. Patient tolerating well without trach, in no acute distress. Denies further questions or concerns. - Physical Exam General: Alert, Oriented x3, Cooperative HEENT: Atraumatic, PERRLA Oral: Moist Mucosa Neck: Supple, No JVD Lungs: Clear to auscultation, Normal air movement Cardiovascular: Regular rate, Regular Rhythm Abdomen: Bowel Sounds Present, Soft, Non Tender, - - peg tube intact without redness Extremities: No clubbing, No cyanosis, No edema, Edema Skin: Ulcer/ Wound - left heel Stage [address], Incision - healing post trach site, covered with DSD Neurological: Cranial nerves II-XII grossly intact, Neuro grossly intact, Motor Exam 5/5 strength throughout - Excpet BLE 4/5 Psych/Mental Status: Normal Affect, Appropriate, Alert and oriented to time, place, person, mood and affect Vital Signs Temp Pulse Resp BP Pulse Ox 98.0 F 90 18 91/55 L 94 08/10/18 10:00 08/10/18 13:27 08/10/18 10:00 08/10/18 13:27 08/10/18 10:00 Oxygen Delivery Method Room Air Weight: 45.8 kg Body Mass Index (BMI) 19.5 Intake and Output for Last 24 Hours 08/08/18 08/09/18 08/10/18 23:59 23:59 23:59 Intake Total 2070 / 2070 2899 / 2899 1420 / 1420 Output Total 1000 / 1000 1750 / 1750 400 / 400 Balance 1070 / 1070 1149 / 1149 1020 / 1020 Laboratory Tests Past 24 Hrs 08/10/18 11:15 Sodium 134 L Potassium 4.2 Chloride 95 L Carbon Dioxide 36.0 H Anion Gap 3 L BUN 14 Creatinine 0.46 L Estim Creat Clear Calc 89.33 Est GFR (MDRD) Af Amer 174 Est GFR (MDRD) Non-Af 144 BUN/Creatinine Ratio 30.2 H Glucose 80 Calcium 9.4 Medical Necessity - Tobacco Use Smoking Status: Former smoker - x 40 years, cessation 07/05/2018 Tobacco Use: Cigarettes Assessment/Plan The patient is a 62 year old F with PMH of tobacco use x 40 year history, cessation June 2018. 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 Patient was recently admitted to [facility] for CAP and hypoxic respiratory failure was treated with IV antibiotics and discharged on a 5-day course of Levaquin. Patient return to ER on July 05, 2018 for worsening SOA, lower extremity paresthesias and weakness. Was afebrile SPO2 98% and intact tympanic at 33 with/sniffs consistently less than -20 and ABG 7.38/49/72. She was intubated and was transferred to [facility] on 07/06/2018. 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 On 07/06/[address] done of head showed no evidence of acute cortical ischemia, mass-effect or intracranial hemorrhage. New enteric and endotracheal tubes are partially visualized. Dr. Kelly, Neurology consulted and patient was diagnosed with a AIDP. Received Plex treatments from 07/08-07/15 and IVIG from 07/16-07/20. On 07/14/2018, Portex tracheostomy size 7 was placed. On 07/15/2018, PEG placement was placed due to dysphagia. On 07/13/2018 NCS showed evidence of severe sensory and motor peripheral neuropathy without active dye limitation primary axonal pathology. Repeat of NCS/EMG on 07/29/2018 showed generalized, chronic, demyelinating sensory motor peripheral polyneuropathy, with secondary axonal loss and active denervation, consistent with AIDP. Patient weaned to trach collar on 07/22/2018. Patient had a cardiac cath on 07/08/2018 showed no CAD. Patient had a reduced EF 40 to 45%, diagnosis of Takotsubo cardiomyopathy, Dr. Wooten cadiologist was consulted and patient started on metoprolol, lisinopril and lipitor. On 07/24/2018 patient had tachycardia with tachypnea. CBC showing leukocytosis with retrocardiac opacity from chest x-ray. Sputum showed Pseudomonas putida. Blood cultures on 07/24/2018 NGTD. IV antibiotics and then changed to Levaquin p.o. x7 days, completed. Patient lives with his spouse in a trilevel home 6 steps for bedroom and bathroom. Patient was independent with all ADLs and transfers prior to hospital admission, but never did drive. Plan - PT for mobility - OT for ADLs - ST for dysphagia - Analgesics as needed - AIDP Plex treatment 07/08-07/15 and IVIG treatment 07/16-07/20/2018 - Acute respiratory failure Portex tracheostomy size 7 on 07/14/2018 and trach collar on 07/22/2018, Decannulated on 08/09/2018 by Decommissioning Well Site Manager - Takotsubo Cardiomyopathy on metoprolol, lisinopril and lipitor - Dysphagia peg placement on 07/15/2018, on Jevity and H2O flushes. Daily weight and I/O. Swallowing evaluation 08/09/18 - Diet: Mechanical soft, thin liquids. Monitor meal percentage intake and Jevity decreased per granulator operator recommendations- Posting Specialist consult - Polyneuropathy on GBN - Left heel pressure Wound Stage I on admission- Off loading, mepliex - GI/DVT prophylaxis pepcid/lovenox, knee high lindsey hose, SCDs - Bowel protocol - Fall precautions - Medical management per Hospitalist- consult - F/U with PCP, cardiology, neurology
[2018-08-10] MEDS: Jevity 1.5 1,000 ML 85 ML GT (20:06)
[2018-08-10] MEDS: Atorvastatin Calcium 40 MG Tablet PO (21:51)
[2018-08-10] MEDS: Famotidine 20 MG Tablet PO (21:51)
--- NOTE | 2018-08-10 21:59 | NURSING ---
Dr. Gauthier notified of pt's currents blood pressure and pulse. Order given to hold tonight's dose of lopressor.
--- NOTE | 2018-08-11 04:48 | NURSING ---
REVIEWED AND AGREE WITH MILLING GENERAL SUPERINTENDENT FIMS AND HANDOFF CHARTING.
[2018-08-11] MEDS: Gabapentin 300 MG Capsule 900 MG PO ×3 (05:44→21:29)
[2018-08-11] MEDS: Menthol/Lanolin/Calamine/Znox 113 GM Tube 1 APPLIC TOPICAL ×3 (05:44→21:35)
[2018-08-11] MEDS: Enoxaparin 40 MG/0.4 ML Syringe SC (05:44)
[2018-08-11] MEDS: oxyCODONE 5 MG Tablet PO ×3 (05:44→21:33)
[2018-08-11 07:14] VITALS: BP 85/45; BP 91/45; BP 93/49; PULSE 87; PULSE 89; PULSE 99
[2018-08-11 08:38] VITALS: BP 128/72; PULSE 95; RESP 16; TEMP 36.6; O2SAT 94
--- NOTE | 2018-08-11 09:52 | PCM.PN.NEU ---
Subjective: Per nursing spoke with hospitalist, positive orthostatics and orders received for NS bolus and blood pressure medication adjustments. Per patient only had dizziness upon am when getting OOB, but quickly resolved. Denied further questions or concerns. - Physical Exam General: Alert, Oriented x3 HEENT: Atraumatic, PERRLA Oral: Moist Mucosa Neck: Supple, No JVD Lungs: Clear to auscultation, Normal air movement Cardiovascular: Regular rate, Regular Rhythm Abdomen: Bowel Sounds Present, Soft, Non Tender, - - peg tube intact, without redness or drng Extremities: No clubbing, No cyanosis, No edema Skin: Ulcer/ Wound - Ulcer/ Wound - left heel Stage [address],, Incision - healing post trach site, covered with DSD Musculoskeletal: No Tenderness to Palpation of Joints or Extremities Neurological: Cranial nerves II-XII grossly intact, Motor Exam 5/5 strength throughout - Except BLE 4/5 strength Psych/Mental Status: Normal Affect, Appropriate, Alert and oriented to time, place, person, mood and affect Vital Signs Temp Pulse Resp BP Pulse Ox 97.9 F 95 16 128/72 H 94 08/11/18 08:38 08/11/18 08:38 08/11/18 08:38 08/11/18 08:38 08/11/18 08:38 Oxygen Delivery Method Room Air Weight: 45.8 kg Body Mass Index (BMI) 19.5 Orthostatic Vital Signs Start: 08/11/18 07:14 Freq: q24h Status: Active Protocol: Activity Type Activity Date Activity User E-Sign Co-Sign Detail Recorded Client Recorded Date Recorded By Document 08/11/18 07:14 AO [id number] 08/11/18 07:15 AO 08/11/18 07:14 Orthostatic Vitals Standing -Blood Pressure (90/60-120/80) 85/45 L -Pulse Rate (60-100) 99 Sitting -Blood Pressure (90/60-120/80) 93/49 L -Pulse Rate (60-100) 87 Lying -Blood Pressure (90/60-120/80) 91/45 L -Pulse Rate (60-100) 89 Intake and Output for Last 24 Hours 08/09/18 08/10/18 08/11/18 23:59 23:59 23:59 Intake Total 2899 / 2899 2265 / 2265 855 / 855 Output Total 1750 / 1750 400 / 400 Balance 1149 / 1149 1865 / 1865 855 / 855 Laboratory Tests Past 24 Hrs 08/10/18 11:15 Sodium 134 L Potassium 4.2 Chloride 95 L Carbon Dioxide 36.0 H Anion Gap 3 L BUN 14 Creatinine 0.46 L Estim Creat Clear Calc 89.33 Est GFR (MDRD) Af Amer 174 Est GFR (MDRD) Non-Af 144 BUN/Creatinine Ratio 30.2 H Glucose 80 Calcium 9.4 Medical Necessity - Tobacco Use Smoking Status: Former smoker - x 40 years, cessation 07/05/2018 Tobacco Use: Cigarettes Assessment/Plan The patient is a 62 year old F with PMH of tobacco use x 40 year history, cessation June 2018. 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 Patient was recently admitted to [facility] for CAP and hypoxic respiratory failure was treated with IV antibiotics and discharged on a 5-day course of Levaquin. Patient return to ER on July 05, 2018 for worsening SOA, lower extremity paresthesias and weakness. Was afebrile SPO2 98% and intact tympanic at 33 with/sniffs consistently less than -20 and ABG 7.38/49/72. She was intubated and was transferred to [facility] on 07/06/2018. 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 On 07/06/[address] done of head showed no evidence of acute cortical ischemia, mass-effect or intracranial hemorrhage. New enteric and endotracheal tubes are partially visualized. Dr. Kelly, Neurology consulted and patient was diagnosed with a AIDP. Received Plex treatments from 07/08-07/15 and IVIG from 07/16-07/20. On 07/14/2018, Portex tracheostomy size 7 was placed. On 07/15/2018, PEG placement was placed due to dysphagia. On 07/13/2018 NCS showed evidence of severe sensory and motor peripheral neuropathy without active dye limitation primary axonal pathology. Repeat of NCS/EMG on 07/29/2018 showed generalized, chronic, demyelinating sensory motor peripheral polyneuropathy, with secondary axonal loss and active denervation, consistent with AIDP. Patient weaned to trach collar on 07/22/2018. Patient had a cardiac cath on 07/08/2018 showed no CAD. Patient had a reduced EF 40 to 45%, diagnosis of Takotsubo cardiomyopathy, Dr. Wooten cadiologist was consulted and patient started on metoprolol, lisinopril and lipitor. On 07/24/2018 patient had tachycardia with tachypnea. CBC showing leukocytosis with retrocardiac opacity from chest x-ray. Sputum showed Pseudomonas putida. Blood cultures on 07/24/2018 NGTD. IV antibiotics and then changed to Levaquin p.o. x7 days, completed. Patient lives with his spouse in a trilevel home 6 steps for bedroom and bathroom. Patient was independent with all ADLs and transfers prior to hospital admission, but never did drive. Plan - PT for mobility - OT for ADLs - ST for dysphagia - Analgesics as needed - AIDP Plex treatment 07/08-07/15 and IVIG treatment 07/16-07/20/2018 - Acute respiratory failure Portex tracheostomy size 7 on 07/14/2018 and trach collar on 07/22/2018, Decannulated on 08/09/2018 by Surface Boss - Takotsubo Cardiomyopathy on metoprolol, lisinopril and lipitor - Dysphagia peg placement on 07/15/2018, on Jevity and H2O flushes. Daily weight and I/O. Swallowing evaluation 08/09/18 - Diet: Mechanical soft, thin liquids. Monitor meal percentage intake and Jevity decreased per exercise manager recommendations- Data Collection Specialist consult - Polyneuropathy on GBN - Left heel pressure Wound Stage I on admission- Off loading, mepliex - GI/DVT prophylaxis pepcid/lovenox, knee high lindsey hose, SCDs - Positive orthostatics NS bolus and BP meds adjustment per hospitalist - Bowel protocol - Fall precautions - Medical management per Hospitalist- consult - F/U with PCP, cardiology, neurology
--- NOTE | 2018-08-11 10:02 | PN.NEURO_ITS ---
Subjective: Per nursing spoke with hospitalist, positive orthostatics and orders received for NS bolus and blood pressure medication adjustments. Per patient only had dizziness upon am when getting OOB, but quickly resolved. Denied further questions or concerns. - Physical Exam General: Alert, Oriented x3 HEENT: Atraumatic, PERRLA Oral: Moist Mucosa Neck: Supple, No JVD Lungs: Clear to auscultation, Normal air movement Cardiovascular: Regular rate, Regular Rhythm Abdomen: Bowel Sounds Present, Soft, Non Tender, - - peg tube intact, without redness or drng Extremities: No clubbing, No cyanosis, No edema Skin: Ulcer/ Wound - Ulcer/ Wound - left heel Stage [address],, Incision - healing post trach site, covered with DSD Musculoskeletal: No Tenderness to Palpation of Joints or Extremities Neurological: Cranial nerves II-XII grossly intact, Motor Exam 5/5 strength throughout - Except BLE 4/5 strength Psych/Mental Status: Normal Affect, Appropriate, Alert and oriented to time, place, person, mood and affect Vital Signs Temp Pulse Resp BP Pulse Ox 97.9 F 95 16 128/72 H 94 08/11/18 08:38 08/11/18 08:38 08/11/18 08:38 08/11/18 08:38 08/11/18 08:38 Oxygen Delivery Method Room Air Weight: 45.8 kg Body Mass Index (BMI) 19.5 Orthostatic Vital Signs Start: 08/11/18 07:14 Freq: q24h Status: Active Protocol: Activity Type Activity Date Activity User E-Sign Co-Sign Detail Recorded Client Recorded Date Recorded By Document 08/11/18 07:14 AO [id number] 08/11/18 07:15 AO 08/11/18 07:14 Orthostatic Vitals Standing -Blood Pressure (90/60-120/80) 85/45 L -Pulse Rate (60-100) 99 Sitting -Blood Pressure (90/60-120/80) 93/49 L -Pulse Rate (60-100) 87 Lying -Blood Pressure (90/60-120/80) 91/45 L -Pulse Rate (60-100) 89 Intake and Output for Last 24 Hours 08/09/18 08/10/18 08/11/18 23:59 23:59 23:59 Intake Total 2899 / 2899 2265 / 2265 855 / 855 Output Total 1750 / 1750 400 / 400 Balance 1149 / 1149 1865 / 1865 855 / 855 Laboratory Tests Past 24 Hrs 08/10/18 11:15 Sodium 134 L Potassium 4.2 Chloride 95 L Carbon Dioxide 36.0 H Anion Gap 3 L BUN 14 Creatinine 0.46 L Estim Creat Clear Calc 89.33 Est GFR (MDRD) Af Amer 174 Est GFR (MDRD) Non-Af 144 BUN/Creatinine Ratio 30.2 H Glucose 80 Calcium 9.4 Medical Necessity - Tobacco Use Smoking Status: Former smoker - x 40 years, cessation 07/05/2018 Tobacco Use: Cigarettes Assessment/Plan The patient is a 62 year old F with PMH of tobacco use x 40 year history, cessation June 2018. 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 Patient was recently admitted to [facility] for CAP and hypoxic respiratory failure was treated with IV antibiotics and discharged on a 5-day course of Levaquin. Patient return to ER on July 05, 2018 for worsening SOA, lower extremity paresthesias and weakness. Was afebrile SPO2 98% and intact tympanic at 33 with/sniffs consistently less than -20 and ABG 7.38/49/72. She was intubated and was transferred to [facility] on 07/06/2018. 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 On 07/06/[address] done of head showed no evidence of acute cortical ischemia, mass-effect or intracranial hemorrhage. New enteric and endotracheal tubes are partially visualized. Dr. Kelly, Neurology consulted and patient was diagnosed with a AIDP. Received Plex treatments from 07/08-07/15 and IVIG from 07/16-07/20. On 07/14/2018, Portex tracheost sussy size 7 was placed. On 07/15/2018, PEG placement was placed due to dysphagia. On 07/13/2018 NCS showed evidence of severe sensory and motor peripheral neuropathy without active dye limitation primary axonal pathology. Repeat of NCS/EMG on 07/29/2018 showed generalized, chronic, demyelinating sensory motor peripheral polyneuropathy, with secondary axonal loss and active denervation, consistent with AIDP. Patient weaned to trach collar on 07/22/2018. Patient had a cardiac cath on 07/08/2018 showed no CAD. Patient had a reduced EF 40 to 45%, diagnosis of Takotsubo cardiomyopathy, Dr. Wooten cadiologist was consulted and patient started on metoprolol, lisinopril and lipitor. On 07/24/2018 patient had tachycardia with tachypnea. CBC showing leukocytosis with retrocardiac opacity from chest x-ray. Sputum showed Pseudomonas putida. Blood cultures on 07/24/2018 NGTD. IV antibiotics and then changed to Levaquin p.o. x7 days, completed. Patient lives with his spouse in a trilevel home 6 steps for bedroom and bathroom. Patient was independent with all ADLs and transfers prior to hospital admission, but never did drive. Plan - PT for mobility - OT for ADLs - ST for dysphagia - Analgesics as needed - AIDP Plex treatment 07/08-07/15 and IVIG treatment 07/16-07/20/2018 - Acute respiratory failure Portex tracheostomy size 7 on 07/14/2018 and trach collar on 07/22/2018, Decannulated on 08/09/2018 by Avionics Systems Repairer - Takotsubo Cardiomyopathy on metoprolol, lisinopril and lipitor - Dysphagia peg placement on 07/15/2018, on Jevity and H2O flushes. Daily weight and I/O. Swallowing evaluation 08/09/18 - Diet: Mechanical soft, thin liquids. Monitor meal percentage intake and Jevity decreased per golf caddie recommendations- Tufter Hand consult - Polyneuropathy on GBN - Left heel pressure Wound Stage I on admission- Off loading, mepliex - GI/DVT prophylaxis pepcid/lovenox, knee high lindsey hose, SCDs - Positive orthostatics NS bolus and BP meds adjustment per hospitalist - Bowel protocol - Fall precautions - Medical management per Hospitalist- consult - F/U with PCP, cardiology, neurology
[2018-08-11] MEDS: Famotidine 20 MG Tablet PO ×2 (10:31→21:29)
[2018-08-11] MEDS: Thiamine Hydrochloride 100 MG Tablet PO (10:32)
[2018-08-11] MEDS: 0.9% Normal Saline 1,000 ML 500 ML IV (11:17)
--- NOTE | 2018-08-11 12:33 | CASEMGMT ---
Social Work IDT met with patient and spouse for Team meeting. Therapy discussed progress, but still working on stairs, becoming more independent, and balance. Nursing monitoring BP and fluids. Notified patient and spouse Medicare has ELOS for 30 days. Will reteam next week and continue progressing. Patient's goal is to return home with spouse at prior independence. Discharge plans remain ongoing at this time. Will continue to follow. EVA Acosta
[2018-08-11 14:08] VITALS: BP 96/54; PULSE 93; RESP 16
[2018-08-11 16:08] VITALS: BP 96/54; PULSE 93
[2018-08-11] MEDS: Jevity 1.5 1,000 ML 85 ML GT (19:45)
[2018-08-11] MEDS: Atorvastatin Calcium 40 MG Tablet PO (21:29)
[2018-08-11] MEDS: Midodrine HCl 5 MG Tablet 2.5 MG PO (21:29)
[2018-08-11 22:00] VITALS: BP 108/55; PULSE 106; RESP 16; TEMP 36.8; O2SAT 97
[2018-08-12] MEDS: Enoxaparin 40 MG/0.4 ML Syringe SC (05:15)
[2018-08-12] MEDS: Midodrine HCl 5 MG Tablet 2.5 MG PO ×2 (05:16→15:32)
[2018-08-12] MEDS: Gabapentin 300 MG Capsule 900 MG PO ×3 (05:16→20:24)
[2018-08-12] MEDS: Menthol/Lanolin/Calamine/Znox 113 GM Tube 1 APPLIC TOPICAL ×3 (05:17→20:25)
[2018-08-12 07:00] VITALS: BP 116/66; PULSE 81; RESP 14; TEMP 36.6; O2SAT 98
[2018-08-12] MEDS: Thiamine Hydrochloride 100 MG Tablet PO (08:05)
[2018-08-12] MEDS: Famotidine 20 MG Tablet PO ×2 (08:05→20:24)
[2018-08-12] MEDS: Acetaminophen 325 MG Tablet 650 MG PO ×2 (11:47→16:09)
--- NOTE | 2018-08-12 13:00 | PN.NEURO_ITS ---
Subjective: Per nursing no issues overnight. Per patient tolerating therapies well and denies dizziness, lightheadedness, headache or vision change. Hospitalist discontinued Lopressor and lisinopril and added midodrine due to blood pressures on low side. Patient denies further questions or concerns. - Physical Exam General: Alert, Oriented x3, Cooperative HEENT: Atraumatic, PERRLA Oral: Moist Mucosa Neck: Supple, No JVD Lungs: Clear to auscultation, Normal air movement Cardiovascular: Regular rate, Regular Rhythm Abdomen: Bowel Sounds Present, Soft, Non Tender, - - peg intact without redness or drng Extremities: No clubbing, No cyanosis, No edema Skin: Ulcer/ Wound - Left heel stage I - mepliex, - - post trach site healing- DSD Musculoskeletal: No Tenderness to Palpation of Joints or Extremities Neurological: Cranial nerves II-XII grossly intact, - - Motor strength RUE and LUE 5/5, RLE and LLE 4/5. Reflexes absent to petallar and achilles. Psych/Mental Status: Normal Affect, Appropriate, Alert and oriented to time, place, person, mood and affect Vital Signs Temp Pulse Resp BP Pulse Ox 97.8 F 81 14 116/66 98 08/12/18 07:00 08/12/18 07:00 08/12/18 07:00 08/12/18 07:00 08/12/18 07:00 Oxygen Delivery Method Room Air Weight: 45.359 kg Body Mass Index (BMI) 19.5 Orthostatic Vital Signs Start: 08/11/18 07:14 Freq: q24h Status: Active Protocol: Activity Type Activity Date Activity User E-Sign Co-Sign Detail Recorded Client Recorded Date Recorded By Document 08/11/18 07:14 AO [id number] 08/11/18 07:15 AO 08/11/18 07:14 Orthostatic Vitals Standing -Blood Pressure (90/60-120/80) 85/45 L -Pulse Rate (60-100) 99 Sitting -Blood Pressure (90/60-120/80) 93/49 L -Pulse Rate (60-100) 87 Lying -Blood Pressure (90/60-120/80) 91/45 L -Pulse Rate (60-100) 89 Intake and Output for Last 24 Hours 06/05/19 06/06/19 06/07/19 23:59 23:59 23:59 Intake Total 2265 / 2265 2305 / 2305 1485 / 1485 Output Total 400 / 400 700 / 700 900 / 900 Balance 1865 / 1865 1605 / 1605 585 / 585 Medical Necessity - Tobacco Use Smoking Status: Former smoker - x 40 years, cessation 07/05/2018 Tobacco Use: Cigarettes Assessment/Plan The patient is a 62 year old F with PMH of tobacco use x 40 year history, cessation June 2018. 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 Patient was recently admitted to [facility] for CAP and hypoxic respiratory failure was treated with IV antibiotics and discharged on a 5-day course of Levaquin. Patient return to ER on July 05, 2018 for worsening SOA, lower extremity paresthesias and weakness. Was afebrile SPO2 98% and intact tympanic at 33 with/sniffs consistently less than -20 and ABG 7.38/49/72. She was intubated and was transferred to [facility] on 07/06/2018. 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 On 07/06/[address] done of head showed no evidence of acute cortical ischemia, mass-effect or intracranial hemorrhage. New enteric and endotracheal tubes are partially visualized. Dr. Kelly, Neurology consulted and patient was diagnosed with a AIDP. Received Plex treatments from 07/08-07/15 and IVIG from 07/16-07/20. On 07/14/2018, Portex tracheostomy size 7 was placed. On 07/15/2018, PEG placement was placed due to dysphagia. On 07/13/2018 NCS showed evidence of severe sensory and motor peripheral neuropathy without active dye limitation primary axonal pathology. Repeat of NCS/EMG on 07/29/2018 showed generalized, chronic, demyelinating sensory motor peripheral polyneuropathy, with secondary axonal loss and active denervation, consistent with AIDP. Patient weaned to trach collar on 07/22/2018. Patient had a cardiac cath on 07/08/2018 showed no CAD. Patient had a reduced EF 40 to 45%, diagnosis of Takotsubo cardiomyopathy, Dr. Wooten cadiologist was consulted and patient started on metoprolol, lisinopril and lipitor. On 07/24/2018 patient had tachycardia with tachypnea. CBC showing leukocytosis with retrocardiac opacity from chest x-ray. Sputum showed Pseudomonas putida. Blood cultures on 07/24/2018 NGTD. IV antibiotics and then changed to Levaquin p.o. x7 days, completed. Patient lives with his spouse in a trilevel home 6 steps for bedroom and bathroom. Patient was independent with all ADLs and transfers prior to hospital admission, but never did drive. Plan - PT for mobility - OT for ADLs - ST for dysphagia - Analgesics as needed - AIDP Plex treatment 07/08-07/15 and IVIG treatment 07/16-07/20/2018 - Acute respiratory failure Portex tracheostomy size 7 on 07/14/2018 and trach collar on 07/22/2018, Decannulated on 08/09/2018 by Freight Service Inspector resolved - Takotsubo Cardiomyopathy on lipitor - Dysphagia peg placement on 07/15/2018, on Jevity and H2O flushes. Daily weight and I/O. Swallowing evaluation 08/09/18 - Diet: Mechanical soft, thin liquids. Monitor meal percentage intake and Jevity decreased per training manager recommendations- Poultry Offal Worker consult - Polyneuropathy on GBN - Left heel pressure Wound Stage I on admission- Off loading, mepliex - GI/DVT prophylaxis pepcid/lovenox, knee high lindsey hose, SCDs - Positive orthostatics NS bolus and BP meds adjustment per hospitalist resolved - Hypotension metoprolol and lisinopril d/c added midodrine. Patient needs to sit up at least 30 min to 60 min after taking midodrine. - Bowel protocol - Fall precautions - Medical management per Hospitalist- consult - F/U with PCP, cardiology, neurology
[2018-08-12] MEDS: oxyCODONE 5 MG Tablet PO (20:23)
[2018-08-12] MEDS: Atorvastatin Calcium 40 MG Tablet PO (20:24)
[2018-08-12] MEDS: LORazepam 0.5 MG Tablet PO (20:24)
[2018-08-12 20:50] VITALS: BP 101/51; PULSE 92; RESP 16; TEMP 36.6; O2SAT 92
[2018-08-13] MEDS: Enoxaparin 40 MG/0.4 ML Syringe SC (06:39)
[2018-08-13] MEDS: Gabapentin 300 MG Capsule 900 MG PO ×3 (06:39→20:47)
[2018-08-13] MEDS: Menthol/Lanolin/Calamine/Znox 113 GM Tube 1 APPLIC TOPICAL ×3 (06:40→20:48)
[2018-08-13 07:00] VITALS: BP 100/54; BP 109/51; BP 97/56; PULSE 110; PULSE 120
[2018-08-13] MEDS: oxyCODONE 5 MG Tablet PO ×3 (08:09→20:46)
[2018-08-13] MEDS: Thiamine Hydrochloride 100 MG Tablet PO (08:09)
[2018-08-13] MEDS: Famotidine 20 MG Tablet PO ×2 (08:09→20:48)
[2018-08-13] MEDS: Midodrine HCl 5 MG Tablet 2.5 MG PO ×3 (08:10→16:19)
[2018-08-13 08:54] VITALS: BP 117/70; PULSE 94; RESP 18; TEMP 36.8; O2SAT 95
[2018-08-13 10:00] VITALS: PULSE 110
--- NOTE | 2018-08-13 10:16 | PN.NEURO_ITS ---
Subjective: No issues overnight. Care discussed with the nursing staff. - Physical Exam General: Alert HEENT: Normocephalic Neck: Supple Lungs: Normal air movement Cardiovascular: Normal S1, Normal S2 Abdomen: Bowel Sounds Present Extremities: No cyanosis Neurological: - - Conscious, alert, CN?2-12 grossly intact, powerB/L UE 5/5 and B/L LE 4/5 power, Reflexes + B/L B/S/T and areflexia B/L K/A, denies any sensory loss, no cerebellar signs, gait deferred. Psych/Mental Status: Normal Affect Vital Signs Temp Pulse Resp BP Pulse Ox 98.2 F 94 18 117/70 95 08/13/18 08:54 08/13/18 08:54 08/13/18 08:54 08/13/18 08:54 08/13/18 08:54 Oxygen Delivery Method Room Air Weight: 45.359 kg Body Mass Index (BMI) 19.5 Orthostatic Vital Signs Start: 08/11/18 07:14 Freq: q24h Status: Active Protocol: Activity Type Activity Date Activity User E-Sign Co-Sign Detail Recorded Client Recorded Date Recorded By Document 08/13/18 07:00 AO [id number] 08/13/18 08:28 AO 08/13/18 07:00 Orthostatic Vitals Standing -Blood Pressure (90/60-120/80) 97/56 L -Extremity Use Right Arm -Pulse Rate (60-100) 120 H Sitting -Blood Pressure (90/60-120/80) 100/54 L -Extremity Use Right Arm -Pulse Rate (60-100) 110 H Lying -Blood Pressure (90/60-120/80) 109/51 L -Extremity Use Right Arm -Pulse Rate (60-100) 110 H Intake and Output for Last 24 Hours 08/11/18 08/12/18 08/13/18 23:59 23:59 23:59 Intake Total 2305 / 2305 1800 / 1800 Output Total 700 / 700 1600 / 1600 1400 / 1400 Balance 1605 / 1605 200 / 200 -1400 / -1400 Medical Necessity - Tobacco Use Smoking Status: Former smoker - x 40 years, cessation 07/05/2018 Tobacco Use: Cigarettes Assessment/Plan 62 year old F with PMH recently diagnosed CIDP, Takotsubo cardiomyopathy admitted to [facility] on 08/07/2018 with debility secondary to AIDP, for greater of 3 hours of therapy daily with the goal of returning back home at or near her prior level functional dependence. Patient was recently admitted to [facility] for PNA and hypoxic respiratory failure was treated with IV antibiotics and discharged on a 5-day course of Levaquin. Patient returned to ED on July 05, 2018 for swallowing difficulty, lower extremity paresthesias and weakness. She was intubated and was transferred to [facility] on 07/06/2018. CT head reported nothing acute. Dr. Kelly, Neurology consulted and patient was diagnosed with a AIDP. Received plasmapheresis treatment from 07/08-07/15 and IVIG from 07/16-07/20. On 07/14/2018, Portex tracheostomy size 7 was placed. On 07/15/2018, PEG placement was placed due to dysphagia. On 07/13/2018 EMG/NCS reported to show evidence of severe sensorimotor peripheral neuropathy without active demyelination suggestive of primary axonal pathology. Repeat of EMG/NCS on 07/29/2018 showed generalized, chronic, demyelinating sensorimotor peripheral polyneuropathy, with secondary axonal loss and active denervation, consistent with AIDP. Patient weaned to trach collar on 07/22/2018. Patient had a cardiac cath on 07/08/2018 showed no CAD. Patient had a reduced EF 40 to 45%, diagnosed with Takotsubo cardiomyopathy, Dr. Wooten pharmacy manager started patient on metoprolol, lisinopril and Lipitor. Trach decannulated on 08/09/2018 by pulmonology. Given persistent low blood pressure blood pressure medications were discontinued by the hospitalist and patient started on midodrine for possible orthostatic hypotension. Dizziness improved since. Plan - PT for mobility - OT for ADLs - ST for dysphagia - Analgesics as needed - AIDP Plex treatment 07/08-07/15 and IVIG treatment 07/16-07/20/2018 - Acute respiratory failure Portex tracheostomy size 7 on 07/14/2018 and trach collar on 07/22/2018, Decannulated on 08/09/2018 by Java Application Engineer resolved - Takotsubo Cardiomyopathy on lipitor - Dysphagia peg placement on 07/15/2018, on Jevity and H2O flushes. Daily weight and I/O. Swallowing evaluation 08/09/18 - Diet: Mechanical soft, thin liquids. Monitor meal percentage intake and Jevity decreased per botany technician recommendations- Audit Clerks Supervisor consult - Polyneuropathy on GBN - Left heel pressure Wound Stage I on admission- Off loading, mepliex - GI/DVT prophylaxis pepcid/lovenox, knee high lindsey hose, SCDs - Positive orthostatics NS bolus and BP meds adjustment per hospitalist resolved - Hypotension metoprolol and lisinopril d/c added midodrine. Patient needs to sit up at least 30 min to 60 min after taking midodrine. - Bowel protocol - Fall precautions - Medical management per Hospitalist- consult - F/U with PCP, cardiology, neurology
[2018-08-13 20:42] VITALS: BP 115/65; PULSE 97; RESP 16; TEMP 36.6; O2SAT 96
[2018-08-13] MEDS: Atorvastatin Calcium 40 MG Tablet PO (20:47)
[2018-08-13] MEDS: LORazepam 0.5 MG Tablet PO (20:47)
[2018-08-14] MEDS: oxyCODONE 5 MG Tablet PO ×2 (04:32→20:40)
[2018-08-14] MEDS: Menthol/Lanolin/Calamine/Znox 113 GM Tube 1 APPLIC TOPICAL ×3 (04:33→20:42)
[2018-08-14] MEDS: Gabapentin 300 MG Capsule 900 MG PO ×3 (04:42→20:41)
[2018-08-14] MEDS: Enoxaparin 40 MG/0.4 ML Syringe SC (04:42)
[2018-08-14 07:49] VITALS: BP 108/66; PULSE 86; RESP 18; TEMP 36.8; O2SAT 92
[2018-08-14] MEDS: Midodrine HCl 5 MG Tablet 2.5 MG PO ×3 (08:43→17:32)
[2018-08-14] MEDS: Famotidine 20 MG Tablet PO ×2 (08:43→20:42)
[2018-08-14] MEDS: Thiamine Hydrochloride 100 MG Tablet PO (08:43)
--- NOTE | 2018-08-14 13:12 | NURSING ---
pt ambulated x1 lap in hallway x1 assist with wheeled walker, tolerated well.
[2018-08-14] MEDS: Acetaminophen 325 MG Tablet 650 MG PO (13:17)
[2018-08-14 20:35] VITALS: BP 110/59; PULSE 92; RESP 16; TEMP 36.9; O2SAT 96
[2018-08-14] MEDS: LORazepam 0.5 MG Tablet PO (20:40)
[2018-08-14] MEDS: Atorvastatin Calcium 40 MG Tablet PO (20:41)
[2018-08-15] MEDS: oxyCODONE 5 MG Tablet PO ×3 (02:07→21:02)
[2018-08-15] MEDS: Enoxaparin 40 MG/0.4 ML Syringe SC (06:03)
[2018-08-15] MEDS: Menthol/Lanolin/Calamine/Znox 113 GM Tube 1 APPLIC TOPICAL ×3 (06:04→21:03)
[2018-08-15] MEDS: Gabapentin 300 MG Capsule 900 MG PO ×3 (06:04→21:02)
[2018-08-15 08:25] VITALS: BP 107/54; PULSE 85; RESP 18; TEMP 36.6; O2SAT 93
[2018-08-15] MEDS: Thiamine Hydrochloride 100 MG Tablet PO (08:41)
[2018-08-15] MEDS: Midodrine HCl 5 MG Tablet 2.5 MG PO ×3 (08:41→17:59)
[2018-08-15] MEDS: Famotidine 20 MG Tablet PO ×2 (08:41→21:02)
[2018-08-15] MEDS: Acetaminophen 325 MG Tablet 650 MG PO (15:02)
[2018-08-15 18:49] VITALS: BP 124/61; PULSE 99; RESP 18; TEMP 36.8; O2SAT 94
[2018-08-15] MEDS: Atorvastatin Calcium 40 MG Tablet PO (21:02)
[2018-08-16] MEDS: oxyCODONE 5 MG Tablet PO ×3 (03:34→21:59)
[2018-08-16] MEDS: Enoxaparin 40 MG/0.4 ML Syringe SC (05:21)
[2018-08-16] MEDS: Menthol/Lanolin/Calamine/Znox 113 GM Tube 1 APPLIC TOPICAL ×3 (05:22→21:30)
[2018-08-16] MEDS: Gabapentin 300 MG Capsule 900 MG PO ×3 (05:23→21:25)
[2018-08-16 06:34] VITALS: BP 105/52; PULSE 80; RESP 16; TEMP 36.8; O2SAT 98
[2018-08-16] MEDS: Famotidine 20 MG Tablet PO ×2 (08:16→21:26)
[2018-08-16] MEDS: Midodrine HCl 5 MG Tablet 2.5 MG PO ×3 (08:16→15:59)
[2018-08-16] MEDS: Acetaminophen 325 MG Tablet 650 MG PO ×2 (08:17→13:18)
[2018-08-16] MEDS: Thiamine Hydrochloride 100 MG Tablet PO (08:17)
--- NOTE | 2018-08-16 15:22 | PCM.PROGNOTE ---
Subjective: Chief complaint: Follow-up after medical consultation after admission to inpatient rehabilitation unit. Patient seen and examined. No acute events overnight. Tracheostomy tube was decannulated and removed. She still has a PEG tube. She has been taking by mouth. She denied any significant complaints. Weakness of extremities is getting better. Her vital signs are stable. - Physical Exam General: Alert, Oriented x3, Cooperative, No apparent distress HEENT: Atraumatic, PERRLA, EOMI, Normocephalic Oral: Moist Mucosa, No Gingival or Mucosal Lesions/ Ulcerations Neck: Supple, No JVD, Negative Carotid Bruits, Trachea Midline, Thyroid Normal Size and Texture, - - Tracheostomy opening is clean and dry. Lungs: Clear to auscultation, No rhonchi, No wheeze, No rales, Diminished Cardiovascular: Regular rate, Regular Rhythm, Normal S1, Normal S2, PMI Normal Abdomen: Bowel Sounds Present, Soft, Non Tender, Non-Distended, No Hepato-splenomegaly Extremities: No clubbing, No cyanosis, No edema Skin: No rashes, No breakdown Lymphatic: No Cervical, Supraclavicular, or Inguinal Adenopathy Neurological: Cranial nerves II-XII grossly intact, Motor Exam 5/5 strength throughout Psych/Mental Status: Normal Affect, Appropriate, Alert and oriented to time, place, person, mood and affect Vital Signs Temp Pulse Resp BP Pulse Ox 98.3 F 80 16 105/52 L 98 08/16/18 06:34 08/16/18 06:34 08/16/18 06:34 08/16/18 06:34 08/16/18 06:34 Oxygen Delivery Method Room Air Weight: 99 lb 6 oz Body Mass Index (BMI) 19.5 Intake and Output for Last 24 Hours 08/14/18 08/15/18 08/16/18 23:59 23:59 23:59 Intake Total 1560 / 1560 1200 / 1200 620 / 620 Output Total 800 / 800 1700 / 1700 700 / 700 Balance 760 / 760 -500 / -500 -80 / -80 Medical Necessity - Tobacco Use Smoking Status: Former smoker - x 40 years, cessation 07/05/2018 Tobacco Use: Cigarettes Assessment/Plan This is a 62 years old female patient admitted to inpatient rehabilitation unit due to debility and functional decline secondary to recent diagnosis of [place] Serrano? syndrome. 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 Patient had pneumonia and hypoxic respiratory failure around mid of June, and couple of weeks later, she started having difficulty swallowing, lower extremity paresthesia and weakness, was intubated and was transferred to [facility] for further evaluation. She was diagnosed with [place] Serrano? syndrome, received plasmapheresis and IVIG. At this time, weakness of extremities getting better significantly. Tracheostomy tube was removed. Still has a PEG tube. Her vital signs are stable. Plan to continue PT OT according to rehab team. #2 acute respiratory failure/status post tracheostomy removal: Tracheostomy tube was decannulated and removed. Respiratory status stable, pulse ox is maintained on room air. #3 status post PEG tube: Patient started on oral feeding with no complications. She is getting only flushes through the PEG tube. #4 Takotsubo cardiomyopathy: Clinically stable, compensated without evidence of acute CHF. Patient was on metoprolol and lisinopril which were discontinued because of hypotension. She is only on statins. #5 hypotension: Lisinopril and metoprolol discontinued, on midodrine. Blood pressure stabilized. #6 DVT prophylaxis: Subcu Lovenox. This note was generated with [email or web address][employer]ly dictation software. It may contain incorrect words, spelling, and punctuation that were not noted in checking the note before signing. Code Visit Inpatient E&M: 54361 Subs Hosp L2
--- NOTE | 2018-08-16 15:29 | PN_ITS ---
Subjective: Chief complaint: Follow-up after medical consultation after admission to inpatient rehabilitation unit. Patient seen and examined. No acute events overnight. Tracheostomy tube was decannulated and removed. She still has a PEG tube. She has been taking by mouth. She denied any significant complaints. Weakness of extremities is getting better. Her vital signs are stable. - Physical Exam General: Alert, Oriented x3, Cooperative, No apparent distress HEENT: Atraumatic, PERRLA, EOMI, Normocephalic Oral: Moist Mucosa, No Gingival or Mucosal Lesions/ Ulcerations Neck: Supple, No JVD, Negative Carotid Bruits, Trachea Midline, Thyroid Normal Size and Texture, - - Tracheostomy opening is clean and dry. Lungs: Clear to auscultation, No rhonchi, No wheeze, No rales, Diminished Cardiovascular: Regular rate, Regular Rhythm, Normal S1, Normal S2, PMI Normal Abdomen: Bowel Sounds Present, Soft, Non Tender, Non-Distended, No Hepato- splenomegaly Extremities: No clubbing, No cyanosis, No edema Skin: No rashes, No breakdown Lymphatic: No Cervical, Supraclavicular, or Inguinal Adenopathy Neurological: Cranial nerves II-XII grossly intact, Motor Exam 5/5 strength throughout Psych/Mental Status: Normal Affect, Appropriate, Alert and oriented to time, place, person, mood and affect Vital Signs Temp Pulse Resp BP Pulse Ox 98.3 F 80 16 105/52 L 98 08/16/18 06:34 08/16/18 06:34 08/16/18 06:34 08/16/18 06:34 08/16/18 06:34 Oxygen Delivery Method Room Air Weight: 99 lb 6 oz Body Mass Index (BMI) 19.5 Intake and Output for Last 24 Hours 08/14/18 08/15/18 08/16/18 23:59 23:59 23:59 Intake Total 1560 / 1560 1200 / 1200 620 / 620 Output Total 800 / 800 1700 / 1700 700 / 700 Balance 760 / 760 -500 / -500 -80 / -80 Medical Necessity - Tobacco Use Smoking Status: Former smoker - x 40 years, cessation 07/05/2018 Tobacco Use: Cigarettes Assessment/Plan This is a 62 years old female patient admitted to inpatient rehabilitation unit due to debility and functional decline secondary to recent diagnosis of [place] Serrano? syndrome. 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 Patient had pneumonia and hypoxic respiratory failure around mid of June, and couple of weeks later, she started having difficulty swallowing, lower extremity paresthesia and weakness, was intubated and was transferred to [facility] for further evaluation. She was diagnosed with [place] Serrano? syndrome, received plasmapheresis and IVIG. At this time, weakness of extremities getting better significantly. Tracheostomy tube was removed. Still has a PEG tube. Her vital signs are stable. Plan to continue PT OT according to rehab team. #2 acute respiratory failure/status post tracheostomy removal: Tracheostomy tube was decannulated and removed. Respiratory status stable, pulse ox is maintained on room air. #3 status post PEG tube: Patient started on oral feeding with no complications. She is getting only flushes through the PEG tube. #4 Takotsubo cardiomyopathy: Clinically stable, compensated without evidence of acute CHF. Patient was on metoprolol and lisinopril which were discontinued because of hypotension. She is only on statins. #5 hypotension: Lisinopril and metoprolol discontinued, on midodrine. Blood pressure stabilized. #6 DVT prophylaxis: Subcu Lovenox. This note was generated with [employer] dictation software. It may contain incorrect words, spelling, and punctuation that were not noted in checking the note before signing. Code Visit Inpatient E&M: 49085 Subs Hosp L2
[2018-08-16 18:56] VITALS: BP 116/56; PULSE 90; RESP 18; TEMP 36.4; O2SAT 94
[2018-08-16] MEDS: Atorvastatin Calcium 40 MG Tablet PO (21:25)
[2018-08-17] MEDS: oxyCODONE 5 MG Tablet PO ×2 (05:47→22:32)
[2018-08-17] MEDS: Gabapentin 300 MG Capsule 900 MG PO ×3 (05:47→21:57)
[2018-08-17] MEDS: Menthol/Lanolin/Calamine/Znox 113 GM Tube 1 APPLIC TOPICAL ×3 (05:47→21:58)
[2018-08-17] MEDS: Enoxaparin 40 MG/0.4 ML Syringe SC (05:47)
[2018-08-17 07:04] VITALS: BP 121/58; PULSE 85; RESP 18; TEMP 36.7; O2SAT 96
[2018-08-17] MEDS: Famotidine 20 MG Tablet PO ×2 (09:01→21:57)
[2018-08-17] MEDS: Midodrine HCl 5 MG Tablet 2.5 MG PO ×3 (09:01→17:12)
[2018-08-17] MEDS: Thiamine Hydrochloride 100 MG Tablet PO (09:01)
[2018-08-17 19:16] VITALS: BP 114/60; PULSE 88; RESP 24; TEMP 36.6; O2SAT 94
[2018-08-17 20:40] VITALS: PULSE 88; O2SAT 94
[2018-08-17] MEDS: Atorvastatin Calcium 40 MG Tablet PO (21:57)
[2018-08-18] MEDS: Enoxaparin 40 MG/0.4 ML Syringe SC (05:37)
[2018-08-18] MEDS: Gabapentin 300 MG Capsule 900 MG PO ×3 (05:37→22:40)
[2018-08-18] MEDS: oxyCODONE 5 MG Tablet PO ×2 (05:38→22:39)
[2018-08-18] MEDS: Menthol/Lanolin/Calamine/Znox 113 GM Tube 1 APPLIC TOPICAL ×3 (05:38→22:40)
[2018-08-18 09:26] VITALS: BP 135/76; PULSE 89; RESP 16; TEMP 36.7; O2SAT 96
[2018-08-18] MEDS: Thiamine Hydrochloride 100 MG Tablet PO (10:01)
[2018-08-18] MEDS: Midodrine HCl 5 MG Tablet 2.5 MG PO ×3 (10:01→17:45)
[2018-08-18] MEDS: Famotidine 20 MG Tablet PO ×2 (10:01→22:40)
--- NOTE | 2018-08-18 10:07 | PCM.PN.NEU ---
Subjective: Late entry 08/17/18 note: No complaints. Tolerating therapies. - Physical Exam General: Alert, Oriented x3, Cooperative, No apparent distress HEENT: LIVIA BHATMI Neurological: Cranial nerves II-XII grossly intact Psych/Mental Status: Normal Affect, Alert and oriented to time, place, person, mood and affect Vital Signs Temp Pulse Resp BP Pulse Ox 36.7 C 89 16 135/76 H 96 08/18/18 09:26 08/18/18 09:26 08/18/18 09:26 08/18/18 09:26 08/18/18 09:26 Oxygen Delivery Method Room Air Weight: 45.473 kg Body Mass Index (BMI) 19.5 Intake and Output for Last 24 Hours 08/16/18 08/17/18 08/18/18 23:59 23:59 23:59 Intake Total 970 / 970 1430 / 1430 Output Total 700 / 700 Balance 270 / 270 1430 / 1430 Medical Necessity - Tobacco Use Smoking Status: Former smoker - x 40 years, cessation 07/05/2018 Tobacco Use: Cigarettes Assessment/Plan 62 year old F with PMH recently diagnosed CIDP, Takotsubo cardiomyopathy admitted to [facility] on 08/07/2018 with debility secondary to AIDP, for greater of 3 hours of therapy daily with the goal of returning back home at or near her prior level functional dependence. Patient was recently admitted to [facility] for PNA and hypoxic respiratory failure was treated with IV antibiotics and discharged on a 5-day course of Levaquin. Patient returned to ED on July 05, 2018 for swallowing difficulty, lower extremity paresthesias and weakness. She was intubated and was transferred to [facility] on 07/06/2018. CT head reported nothing acute. Dr. Kelly, Neurology consulted and patient was diagnosed with a AIDP. Received plasmapheresis treatment from 07/08-07/15 and IVIG from 07/16-07/20. On 07/14/2018, Portex tracheostomy size 7 was placed. On 07/15/2018, PEG placement was placed due to dysphagia. On 07/13/2018 EMG/NCS reported to show evidence of severe sensorimotor peripheral neuropathy without active demyelination suggestive of primary axonal pathology. Repeat of EMG/NCS on 07/29/2018 showed generalized, chronic, demyelinating sensorimotor peripheral polyneuropathy, with secondary axonal loss and active denervation, consistent with AIDP. Patient weaned to trach collar on 07/22/2018. Patient had a cardiac cath on 07/08/2018 showed no CAD. Patient had a reduced EF 40 to 45%, diagnosed with Takotsubo cardiomyopathy, Dr. Wooten machine engraver started patient on metoprolol, lisinopril and Lipitor. Trach decannulated on 08/09/2018 by pulmonology. Given persistent low blood pressure blood pressure medications were discontinued by the hospitalist and patient started on midodrine for possible orthostatic hypotension. Dizziness improved since. Plan - PT for mobility - OT for ADLs - ST for dysphagia - Analgesics as needed - AIDP Plex treatment 07/08-07/15 and IVIG treatment 07/16-07/20/2018 - Acute respiratory failure Portex tracheostomy size 7 on 07/14/2018 and trach collar on 07/22/2018, Decannulated on 08/09/2018 by Refinery Operator Gas Plant resolved - Takotsubo Cardiomyopathy on lipitor - Dysphagia peg placement on 07/15/2018, on Jevity and H2O flushes. Daily weight and I/O. Swallowing evaluation 08/09/18 - Diet: Mechanical soft, thin liquids. Monitor meal percentage intake and Jevity decreased per lead principal technical architect recommendations- Outside Sales Account Representative consult - Polyneuropathy on GBN - Left heel pressure Wound Stage I on admission- Off loading, mepliex - GI/DVT prophylaxis pepcid/lovenox, knee high lindsey hose, SCDs - Positive orthostatics NS bolus and BP meds adjustment per hospitalist resolved - Hypotension metoprolol and lisinopril d/c added midodrine. Patient needs to sit up at least 30 min to 60 min after taking midodrine. - Bowel protocol - Fall precautions - Medical management per Hospitalist- consult - F/U with PCP, cardiology, neurology Team meeting tomorrow
--- NOTE | 2018-08-18 10:09 | PCM.PN.NEU ---
Subjective: Staffed in team meeting. is present. She is able ambulate with a walker greater than 300 feet. She is able to negotiate a full flight of stairs, therapy does note decreased dorsiflexion bilaterally. Occupational therapy notes standby assistance. Doing well from a nursing standpoint, pain is controlled. Patient notes that her paresthesias in her fingers have resolved. clinical services assistant indicate that she can be discharged approximately September 06 however we will re-team her next week on . - Physical Exam General: Alert, Oriented x3, Cooperative, No apparent distress HEENT: Atraumatic, EOMI Neurological: Cranial nerves II-XII grossly intact Psych/Mental Status: Normal Affect, Alert and oriented to time, place, person, mood and affect Vital Signs Temp Pulse Resp BP Pulse Ox 36.7 C 89 16 135/76 H 96 08/18/18 09:26 08/18/18 09:26 08/18/18 09:26 08/18/18 09:26 08/18/18 09:26 Oxygen Delivery Method Room Air Weight: 45.473 kg Body Mass Index (BMI) 19.5 Intake and Output for Last 24 Hours 08/16/18 08/17/18 08/18/18 23:59 23:59 23:59 Intake Total 970 / 970 1430 / 1430 Output Total 700 / 700 Balance 270 / 270 1430 / 1430 Current Medications Generic Name Dose Route Start Last Admin Trade Name Freq PRN Reason Stop Dose Admin Acetaminophen 650 mg 08/12/18 09:39 08/16/18 13:18 Tylenol PO 650 mg Q4H PRN PRN Administration PAIN Albuterol Sulfate 2.5 mg 08/07/18 14:04 Ventolin Aerosols INHALATION Q6HWA.RT PRN SHORTNESS OF BREATH Atorvastatin Calcium 40 mg 08/10/18 22:00 08/17/18 21:57 Lipitor PO 40 mg QHS CHARU Administration Bisacodyl 10 mg 08/07/18 13:29 Dulcolax RECTAL .PRN X 1 PRN Constipation Calamine/Phenol 1 applic 08/07/18 22:00 08/18/18 05:38 Calmoseptine Ointment TOPICAL 1 applicatio TID CHARU Administration Protocol Enoxaparin Sodium 40 mg 08/08/18 06:00 08/18/18 05:37 Lovenox SC 40 mg DAILY@0600 CHARU Administration Enteral Nutritional Formula 250 ml 08/12/18 18:00 08/18/18 10:01 Jevity 1.5 GT Not Given TIDPC [facility] Famotidine 20 mg 08/10/18 22:00 08/18/18 10:01 Pepcid PO 20 mg BID CHARU Administration Gabapentin 900 mg 08/10/18 14:00 08/18/18 05:37 Neurontin PO 900 mg TID CHARU Administration Lorazepam 0.5 mg 08/10/18 12:35 08/14/18 20:40 Ativan PO 0.5 mg QHS PRN PRN Administration Insomnia Magnesium Hydroxide 30 ml 08/10/18 12:35 Milk Of Magnesia PO .PRN X 1 PRN Constipation Midodrine 2.5 mg 08/12/18 16:00 08/18/18 10:01 Proamatine PO 2.5 mg 08,12,16 CHARU Administration Oxycodone HCl 5 - 10 mg 08/10/18 12:35 08/18/18 05:38 Oxyir PO 5 mg Q4H PRN PRN Administration SEVERE PAIN (-12/15) Senna/Docusate Sodium 2 tablet 08/10/18 12:35 Senokot-S, Augustina-Colace PO BID PRN Constipation Thiamine HCl 100 mg 08/11/18 10:00 08/18/18 10:01 Vitamin B1 PO 100 mg DAILY CHARU Administration Medical Necessity - Tobacco Use Smoking Status: Former smoker - x 40 years, cessation 07/05/2018 Tobacco Use: Cigarettes Assessment/Plan 62 year old F with PMH recently diagnosed AIDP, Takotsubo cardiomyopathy admitted to [facility] on 08/07/2018 with debility secondary to AIDP, f with the goal of returning back home at or near her prior level functional dependence. Patient was recently admitted to [facility] for PNA and hypoxic respiratory failure was treated with IV antibiotics and discharged on a 5-day course of Levaquin. Patient returned to ED on July 05, 2018 for swallowing difficulty, lower extremity paresthesias and weakness. She was intubated and was transferred to [facility] on 07/06/2018. CT head reported nothing acute. Dr. Kelly, Neurology consulted and patient was diagnosed with a AIDP. Received plasmapheresis treatment from 07/08-07/15 and IVIG from 07/16-07/20. On 07/14/2018, Portex tracheostomy size 7 was placed. On 07/15/2018, PEG placement was placed due to dysphagia. On 07/13/2018 EMG/NCS reported to show evidence of severe sensorimotor peripheral neuropathy without active demyelination suggestive of primary axonal pathology. Repeat of EMG/NCS on 07/29/2018 showed generalized, chronic, demyelinating sensorimotor peripheral polyneuropathy, with secondary axonal loss and active denervation, consistent with AIDP. Patient weaned to trach collar on 07/22/2018. Patient had a cardiac cath on 07/08/2018 showed no CAD. Patient had a reduced EF 40 to 45%, diagnosed with Takotsubo cardiomyopathy, Dr. Wooten champagne maker started patient on metoprolol, lisinopril and Lipitor. Trach decannulated on 08/09/2018 by pulmonology. Given persistent low blood pressure blood pressure medications were discontinued by the hospitalist and patient started on midodrine for possible orthostatic hypotension. Dizziness improved since. Plan - PT for mobility. 08/18: Improved - OT for ADLs. 08/18: Improved - ST for dysphagia. 08/18: Improved. Now on a regular diet, no swallowing precautions, speech therapy signed off. Will need PEG tube removed as outpatients approximately 90 days after placed which will be 10/15/2018 - Analgesics as needed - AIDP Plex treatment 07/08-07/15 and IVIG treatment 07/16-07/20/2018. 08/18: Significant improvement - Acute respiratory failure Portex tracheostomy size 7 on 07/14/2018 and trach collar on 07/22/2018, Decannulated on 08/09/2018 by Research Kennel Supervisor resolved - Takotsubo Cardiomyopathy on lipitor - Dysphagia peg placement on 07/15/2018, on Jevity and H2O flushes. Daily weight and I/O. Swallowing evaluation 08/09/18 - Diet: Mechanical soft, thin liquids. Monitor meal percentage intake and Jevity decreased per quality assurance manager recommendations- Shelter Director consult - Polyneuropathy on GBN - Left heel pressure Wound Stage I on admission- Off loading, mepliex - GI/DVT prophylaxis pepcid/lovenox, knee high lindsey hose, SCDs - Positive orthostatics NS bolus and BP meds adjustment per hospitalist resolved - Hypotension metoprolol and lisinopril d/c added midodrine. Patient needs to sit up at least 30 min to 60 min after taking midodrine. - Bowel protocol - Fall precautions - Medical management per Hospitalist- consult - F/U with PCP, cardiology, neurology Possible discharge September 06
--- NOTE | 2018-08-18 10:12 | PN.NEURO_ITS ---
Subjective: Staffed in team meeting. is present. She is able ambulate with a walker greater than 300 feet. She is able to negotiate a full flight of stairs, therapy does note decreased dorsiflexion bilaterally. Occupational therapy notes standby assistance. Doing well from a nursing standpoint, pain is controlled. Patient notes that her paresthesias in her fingers have resolved. bibliographic services specialist indicate that she can be discharged approximately September 06 however we will re-team her next week on . - Physical Exam General: Alert, Oriented x3, Cooperative, No apparent distress HEENT: Atraumatic, EOMI Neurological: Cranial nerves II-XII grossly intact Psych/Mental Status: Normal Affect, Alert and oriented to time, place, person, mood and affect Vital Signs Temp Pulse Resp BP Pulse Ox 36.7 C 89 16 135/76 H 96 08/18/18 09:26 08/18/18 09:26 08/18/18 09:26 08/18/18 09:26 08/18/18 09:26 Oxygen Delivery Method Room Air Weight: 45.473 kg Body Mass Index (BMI) 19.5 Intake and Output for Last 24 Hours 08/16/18 08/17/18 08/18/18 23:59 23:59 23:59 Intake Total 970 / 970 1430 / 1430 Output Total 700 / 700 Balance 270 / 270 1430 / 1430 Current Medications Generic Name Dose Route Start Last Admin Trade Name Freq PRN Reason Stop Dose Admin Acetaminophen 650 mg 08/12/18 09:39 08/16/18 13:18 Tylenol PO 650 mg Q4H PRN PRN Administration PAIN Albuterol Sulfate 2.5 mg 08/07/18 14:04 Ventolin Aerosols INHALATION Q6HWA.RT PRN SHORTNESS OF BREATH Atorvastatin Calcium 40 mg 08/10/18 22:00 08/17/18 21:57 Lipitor PO 40 mg QHS CHARU Administration Bisacodyl 10 mg 08/07/18 13:29 Dulcolax RECTAL .PRN X 1 PRN Constipation Calamine/Phenol 1 applic 08/07/18 22:00 08/18/18 05:38 Calmoseptine Ointment TOPICAL 1 applicatio TID CHARU Administration Protocol Enoxaparin Sodium 40 mg 08/08/18 06:00 08/18/18 05:37 Lovenox SC 40 mg DAILY@0600 CHARU Administration Enteral Nutritional Formula 250 ml 08/12/18 18:00 08/18/18 10:01 Jevity 1.5 GT Not Given TIDPC [facility] Famotidine 20 mg 08/10/18 22:00 08/18/18 10:01 Pepcid PO 20 mg BID CHARU Administration Gabapentin 900 mg 08/10/18 14:00 08/18/18 05:37 Neurontin PO 900 mg TID CHARU Administration Lorazepam 0.5 mg 08/10/18 12:35 08/14/18 20:40 Ativan PO 0.5 mg QHS PRN PRN Administration Insomnia Magnesium Hydroxide 30 ml 08/10/18 12:35 Milk Of Magnesia PO .PRN X 1 PRN Constipation Midodrine 2.5 mg 08/12/18 16:00 08/18/18 10:01 Proamatine PO 2.5 mg 08,12,16 CHARU Administration Oxycodone HCl 5 - 10 mg 08/10/18 12:35 08/18/18 05:38 Oxyir PO 5 mg Q4H PRN PRN Administration SEVERE PAIN (-12/15) Senna/Docusate Sodium 2 tablet 08/10/18 12:35 Senokot-S, Augustina-Colace PO BID PRN Constipation Thiamine HCl 100 mg 08/11/18 10:00 08/18/18 10:01 Vitamin B1 PO 100 mg DAILY CHARU Administration Medical Necessity - Tobacco Use Smoking Status: Former smoker - x 40 years, cessation 07/05/2018 Tobacco Use: Cigarettes Assessment/Plan 62 year old F with PMH recently diagnosed AIDP, Takotsubo cardiomyopathy admitted to [facility] on 08/07/2018 with debility secondary to AIDP, f with the goal of returning back home at or near her prior level functional dependence. Patient was recently admitted to [facility] for PNA and hypoxic respiratory failure was treated with IV antibiotics and discharged on a 5-day course of Levaquin. Patient returned to ED on July 05, 2018 for swallowing difficulty, lower extremity paresthesias and weakness. She was intubated and was transferred to [facility] on 07/06/2018. CT head reported nothing acute. Dr. Kelly, Neurology consulted and patient was diagnosed with a AIDP. Received plasmapheresis treatment from 07/08-07/15 and IVIG from 07/16-07/20. On 07/14/2018, Portex tracheostomy size 7 was placed. On 07/15/2018, PEG placement was placed due to dysphagia. On 07/13/2018 EMG/NCS reported to show evidence of severe sensorimotor peripheral neuropathy without active demyelination suggestive of primary axonal pathology. Repeat of EMG/NCS on 07/29/2018 showed generalized, chronic, demyelinating sensorimotor peripheral polyneuropathy, with secondary axonal loss and active denervation, consistent with AIDP. Patient weaned to trach collar on 07/22/2018. Patient had a cardiac cath on 07/08/2018 showed no CAD. Patient had a reduced EF 40 to 45%, diagnosed with Takotsubo cardiomyopathy, Dr. Wooten log tumbler started patient on metoprolol, lisinopril and Lipitor. Trach decannulated on 08/09/2018 by pulmonology. Given persistent low blood pressure blood pressure medications were discontinued by the hospitalist and patient started on midodrine for possible orthostatic hypotension. Dizziness improved since. Plan - PT for mobility. 08/18: Improved - OT for ADLs. 08/18: Improved - ST for dysphagia. 08/18: Improved. Now on a regular diet, no swallowing precautions, speech therapy signed off. Will need PEG tube removed as outpatients approximately 90 days after placed which will be 10/15/2018 - Analgesics as needed - AIDP Plex treatment 07/08-07/15 and IVIG treatment 07/16-07/20/2018. 08/18: Significant improvement - Acute respiratory failure Portex tracheostomy size 7 on 07/14/2018 and trach collar on 07/22/2018, Decannulated on 08/09/2018 by Trailer Rental Clerk resolved - Takotsubo Cardiomyopathy on lipitor - Dysphagia peg placement on 07/15/2018, on Jevity and H2O flushes. Daily weight and I/O. Swallowing evaluation 08/09/18 - Diet: Mechanical soft, thin liquids. Monitor meal percentage intake and Jevity decreased per manager book recommendations- Manufacturing Planner consult - Polyneuropathy on GBN - Left heel pressure Wound Stage I on admission- Off loading, mepliex - GI/DVT prophylaxis pepcid/lovenox, knee high lindsey hose, SCDs - Positive orthostatics NS bolus and BP meds adjustment per hospitalist resolved - Hypotension metoprolol and lisinopril d/c added midodrine. Patient needs to sit up at least 30 min to 60 min after taking midodrine. - Bowel protocol - Fall precautions - Medical management per Hospitalist- consult - F/U with PCP, cardiology, neurology Possible discharge September 06
--- NOTE | 2018-08-18 10:13 | CASEMGMT ---
Social Work IDT met with patient and spouse for Team meeting. Patient continuing to make improvements with therapy. Working with stairs and using a cane, but still having left-sided weakness. Patient's goal is to return home with spouse. Will reteam next week and will set a DC date. EVA Acosta
[2018-08-18 20:22] VITALS: BP 101/51; PULSE 95; RESP 16; TEMP 36.9; O2SAT 95
[2018-08-18] MEDS: Atorvastatin Calcium 40 MG Tablet PO (22:40)
[2018-08-19] MEDS: Gabapentin 300 MG Capsule 900 MG PO ×3 (06:45→21:53)
[2018-08-19] MEDS: Enoxaparin 40 MG/0.4 ML Syringe SC (06:45)
[2018-08-19] MEDS: Menthol/Lanolin/Calamine/Znox 113 GM Tube 1 APPLIC TOPICAL ×3 (06:46→21:53)
[2018-08-19 08:00] VITALS: BP 110/64; PULSE 88; RESP 16; TEMP 36.7; O2SAT 97
[2018-08-19] MEDS: Thiamine Hydrochloride 100 MG Tablet PO (08:07)
[2018-08-19] MEDS: Midodrine HCl 5 MG Tablet 2.5 MG PO ×3 (08:07→16:55)
[2018-08-19] MEDS: Famotidine 20 MG Tablet PO ×2 (08:07→21:53)
--- NOTE | 2018-08-19 11:04 | PCM.PROGNOTE ---
Subjective: Chief complaint: Follow-up after consultation for medical management after admission to inpatient rehabilitation unit. Patient seen and examined. No acute events overnight. She denies any complaints. She is doing well. Her vital signs are stable. - Physical Exam General: Alert, Oriented x3, Cooperative, No apparent distress HEENT: Atraumatic, PERRLA, EOMI, Normocephalic Oral: Moist Mucosa, No Gingival or Mucosal Lesions/ Ulcerations Neck: Supple, No JVD, Negative Carotid Bruits, Trachea Midline, Thyroid Normal Size and Texture, - - Tracheostomy opening is closing up, clean and dry. Lungs: Clear to auscultation, No rhonchi, No wheeze, No rales, Diminished Cardiovascular: Regular rate, Regular Rhythm, Normal S1, Normal S2, No murmurs Abdomen: Bowel Sounds Present, Soft, Non Tender, Non-Distended, No Hepato-splenomegaly Extremities: No clubbing, No cyanosis, No edema Skin: No rashes, No breakdown Lymphatic: No Cervical, Supraclavicular, or Inguinal Adenopathy Neurological: Cranial nerves II-XII grossly intact, Neuro grossly intact Psych/Mental Status: Normal Affect, Appropriate, Alert and oriented to time, place, person, mood and affect Vital Signs Temp Pulse Resp BP Pulse Ox 98.5 F 95 16 101/51 L 95 08/18/18 20:22 08/18/18 20:22 08/18/18 20:22 08/18/18 20:22 08/18/18 20:22 Oxygen Delivery Method Room Air Weight: 100 lb 4 oz Body Mass Index (BMI) 19.5 Intake and Output for Last 24 Hours 08/17/18 08/18/18 08/19/18 23:59 23:59 23:59 Intake Total 1430 / 1430 75 / 75 435 / 435 Balance 1430 / 1430 75 / 75 435 / 435 Medical Necessity - Tobacco Use Smoking Status: Former smoker - x 40 years, cessation 07/05/2018 Tobacco Use: Cigarettes Assessment/Plan This is a 62 years old female patient admitted to inpatient rehabilitation unit due to debility and functional decline secondary to recent diagnosis of [place] Serrano? syndrome. 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 She is doing well, respiratory status stable. Weakness of the legs is improving. Plan to continue PT OT according to rehab team. #2 acute respiratory failure/status post tracheostomy removal: Denies any chest pain or shortness of breath, pulse ox is maintained on room air. Respiratory status stable. #3 status post PEG tube: Tolerating oral feeding with no complications. She is getting only flushes through the PEG tube. #4 Takotsubo cardiomyopathy: Clinically stable, compensated without evidence of acute CHF. Patient was on metoprolol and lisinopril which were discontinued because of hypotension. She is only on statins. #5 hypotension: Lisinopril and metoprolol discontinued, on midodrine. Blood pressure stable.. #6 DVT prophylaxis: Subcu Lovenox. This note was generated with [employer] dictation software. It may contain incorrect words, spelling, and punctuation that were not noted in checking the note before signing. Code Visit Inpatient E&M: 34954 Subs Hosp L2
--- NOTE | 2018-08-19 11:07 | PN_ITS ---
Subjective: Chief complaint: Follow-up after consultation for medical management after admission to inpatient rehabilitation unit. Patient seen and examined. No acute events overnight. She denies any complaints. She is doing well. Her vital signs are stable. - Physical Exam General: Alert, Oriented x3, Cooperative, No apparent distress HEENT: Atraumatic, PERRLA, EOMI, Normocephalic Oral: Moist Mucosa, No Gingival or Mucosal Lesions/ Ulcerations Neck: Supple, No JVD, Negative Carotid Bruits, Trachea Midline, Thyroid Normal Size and Texture, - - Tracheostomy opening is closing up, clean and dry. Lungs: Clear to auscultation, No rhonchi, No wheeze, No rales, Diminished Cardiovascular: Regular rate, Regular Rhythm, Normal S1, Normal S2, No murmurs Abdomen: Bowel Sounds Present, Soft, Non Tender, Non-Distended, No Hepato- splenomegaly Extremities: No clubbing, No cyanosis, No edema Skin: No rashes, No breakdown Lymphatic: No Cervical, Supraclavicular, or Inguinal Adenopathy Neurological: Cranial nerves II-XII grossly intact, Neuro grossly intact Psych/Mental Status: Normal Affect, Appropriate, Alert and oriented to time, place, person, mood and affect Vital Signs Temp Pulse Resp BP Pulse Ox 98.5 F 95 16 101/51 L 95 08/18/18 20:22 08/18/18 20:22 08/18/18 20:22 08/18/18 20:22 08/18/18 20:22 Oxygen Delivery Method Room Air Weight: 100 lb 4 oz Body Mass Index (BMI) 19.5 Intake and Output for Last 24 Hours 08/17/18 08/18/18 08/19/18 23:59 23:59 23:59 Intake Total 1430 / 1430 75 / 75 435 / 435 Balance 1430 / 1430 75 / 75 435 / 435 Medical Necessity - Tobacco Use Smoking Status: Former smoker - x 40 years, cessation 07/05/2018 Tobacco Use: Cigarettes Assessment/Plan This is a 62 years old female patient admitted to inpatient rehabilitation unit due to debility and functional decline secondary to recent diagnosis of [place] Serrano? syndrome. 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 She is doing well, respiratory status stable. Weakness of the legs is improving. Plan to continue PT OT according to rehab team. #2 acute respiratory failure/status post tracheostomy removal: Denies any chest pain or shortness of breath, pulse ox is maintained on room air. Respiratory status stable. #3 status post PEG tube: Tolerating oral feeding with no complications. She is getting only flushes through the PEG tube. #4 Takotsubo cardiomyopathy: Clinically stable, compensated without evidence of acute CHF. Patient was on metoprolol and lisinopril which were discontinued because of hypotension. She is only on statins. #5 hypotension: Lisinopril and metoprolol discontinued, on midodrine. Blood p ressure stable.. #6 DVT prophylaxis: Subcu Lovenox. This note was generated with [employer] dictation software. It may contain incorrect words, spelling, and punctuation that were not noted in checking the note before signing. Code Visit Inpatient E&M: 89531 Subs Hosp L2
[2018-08-19 20:47] VITALS: BP 135/78; PULSE 84; RESP 16; TEMP 36.6; O2SAT 98
[2018-08-19] MEDS: Atorvastatin Calcium 40 MG Tablet PO (21:53)
[2018-08-19] MEDS: LORazepam 0.5 MG Tablet PO (21:55)
[2018-08-19] MEDS: oxyCODONE 5 MG Tablet PO (21:56)
[2018-08-20] MEDS: Gabapentin 300 MG Capsule 900 MG PO ×3 (05:29→22:31)
[2018-08-20] MEDS: Enoxaparin 40 MG/0.4 ML Syringe SC (05:30)
[2018-08-20] MEDS: Menthol/Lanolin/Calamine/Znox 113 GM Tube 1 APPLIC TOPICAL ×3 (05:31→22:31)
[2018-08-20] MEDS: Midodrine HCl 5 MG Tablet 2.5 MG PO ×3 (07:34→16:46)
[2018-08-20] MEDS: Famotidine 20 MG Tablet PO ×2 (07:34→22:32)
[2018-08-20] MEDS: Thiamine Hydrochloride 100 MG Tablet PO (07:34)
[2018-08-20 09:27] VITALS: BP 110/60; PULSE 58; RESP 16; TEMP 36.8; O2SAT 98
[2018-08-20] MEDS: oxyCODONE 5 MG Tablet PO ×2 (13:48→22:30)
[2018-08-20 19:51] VITALS: BP 133/72; PULSE 92; RESP 18; TEMP 36.4; O2SAT 96
--- NOTE | 2018-08-20 19:52 | PCM.PROGNOTE ---
Subjective: 63-year-old female admitted to the rehab unit at [facility] for IDP. she is doig very well per the nursing staff. She denies any difficulty swallowing. She ambulated 445 feet today with a wheeled walker and standby assist. A 6-minute walk was attempted but the patient was only able to ambulate for 4 minutes before she became very fatigued. She denies nausea, vomiting, abdominal pain, chest pain, shortness of breath, difficulty swallowing. - Physical Exam General: Alert, Oriented x3, Cooperative, No apparent distress HEENT: Atraumatic Oral: Moist Mucosa Neck: Supple, - - The tracheostomy site is closing and there is no periwound erythema or purulent discharge. Lungs: Clear to auscultation Cardiovascular: Regular rate, Regular Rhythm, Normal S1, Normal S2, No murmurs, No rub noted, No Gallop Abdomen: Bowel Sounds Present, Soft, Non Tender, Non-Distended Extremities: No cyanosis, No edema Skin: No rashes, No breakdown Musculoskeletal: No Tenderness to Palpation of Joints or Extremities Neurological: Cranial nerves II-XII grossly intact Psych/Mental Status: Normal Affect, Appropriate Vital Signs Temp Pulse Resp BP Pulse Ox 98.2 F 58 L 16 110/60 98 08/20/18 09:27 08/20/18 09:27 08/20/18 09:27 08/20/18 09:27 08/20/18 09:27 Oxygen Delivery Method Room Air Weight: 99 lb 8 oz Body Mass Index (BMI) 19.5 Intake and Output for Last 24 Hours 08/18/18 08/19/18 08/20/18 23:59 23:59 23:59 Intake Total 75 / 75 1435 / 1435 60 / 60 Output Total 800 / 800 Balance 75 / 75 635 / 635 60 / 60 Medical Necessity - Tobacco Use Smoking Status: Former smoker - x 40 years, cessation 07/05/2018 Tobacco Use: Cigarettes Assessment/Plan Impressions 1. ADIP -much improved 2. oropharyngeal dysphagia-resolved 3. PEG present-not in use 4. recent tracheostomy for acute respiratory failure requiring intubation -currently on room air. Tracheostomy site is closing up 5. Recent acute systolic congestive heart failure with an EF of 40 to 50% secondary to Takotsubo's cardiomyopathy. Cardiac cath negative for ischemia 6. Hyperlipidemia 7. Chronic back pain on oxycodone 8. Malnutrition 9. Former smoker-recently quit Continue current tx Code Visit Inpatient E&M: 36761 Subs Hosp L2
--- NOTE | 2018-08-20 19:56 | PN_ITS ---
Subjective: 63-year-old female admitted to the rehab unit at [facility] for IDP. she is doig very well per the nursing staff. She denies any difficulty swallowing. She ambulated 445 feet today with a wheeled walker and standby assist. A 6-minute walk was attempted but the patient was only able to ambulate for 4 minutes before she became very fatigued. She denies nausea, vomiting, abdominal pain, chest pain, shortness of breath, difficulty swallowing. - Physical Exam General: Alert, Oriented x3, Cooperative, No apparent distress HEENT: Atraumatic Oral: Moist Mucosa Neck: Supple, - - The tracheostomy site is closing and there is no periwound erythema or purulent discharge. Lungs: Clear to auscultation Cardiovascular: Regular rate, Regular Rhythm, Normal S1, Normal S2, No murmurs, No rub noted, No Gallop Abdomen: Bowel Sounds Present, Soft, Non Tender, Non-Distended Extremities: No cyanosis, No edema Skin: No rashes, No breakdown Musculoskeletal: No Tenderness to Palpation of Joints or Extremities Neurological: Cranial nerves II-XII grossly intact Psych/Mental Status: Normal Affect, Appropriate Vital Signs Temp Pulse Resp BP Pulse Ox 98.2 F 58 L 16 110/60 98 08/20/18 09:27 08/20/18 09:27 08/20/18 09:27 08/20/18 09:27 08/20/18 09:27 Oxygen Delivery Method Room Air Weight: 99 lb 8 oz Body Mass Index (BMI) 19.5 Intake and Output for Last 24 Hours 08/18/18 08/19/18 08/20/18 23:59 23:59 23:59 Intake Total 75 / 75 1435 / 1435 60 / 60 Output Total 800 / 800 Balance 75 / 75 635 / 635 60 / 60 Medical Necessity - Tobacco Use Smoking Status: Former smoker - x 40 years, cessation 07/05/2018 Tobacco Use: Cigarettes Assessment/Plan Impressions 1. ADIP -much improved 2. oropharyngeal dysphagia-resolved 3. PEG present-not in use 4. recent tracheostomy for acute respiratory failure requiring intubation - currently on room air. Tracheostomy site is closing up 5. Recent acute systolic congestive heart failure with an EF of 40 to 50% secondary to Takotsubo's cardiomyopathy. Cardiac cath negative for ischemia 6. Hyperlipidemia 7. Chronic back pain on oxycodone 8. Malnutrition 9. Former smoker-recently quit Continue current tx Code Visit Inpatient E&M: 70956 Subs Hosp L2
[2018-08-20] MEDS: Atorvastatin Calcium 40 MG Tablet PO (22:31)
[2018-08-21] MEDS: Gabapentin 300 MG Capsule 900 MG PO ×3 (06:08→22:01)
[2018-08-21] MEDS: Enoxaparin 40 MG/0.4 ML Syringe SC (06:09)
[2018-08-21] MEDS: Menthol/Lanolin/Calamine/Znox 113 GM Tube 1 APPLIC TOPICAL ×2 (06:09→13:45)
[2018-08-21] MEDS: oxyCODONE 5 MG Tablet PO (06:13)
[2018-08-21 07:00] VITALS: BP 101/60; PULSE 88; RESP 16; TEMP 36.6; O2SAT 93
[2018-08-21] MEDS: Midodrine HCl 5 MG Tablet 2.5 MG PO ×3 (08:14→16:45)
[2018-08-21] MEDS: Famotidine 20 MG Tablet PO ×2 (08:14→22:01)
[2018-08-21] MEDS: Thiamine Hydrochloride 100 MG Tablet PO (08:14)
[2018-08-21 21:45] VITALS: BP 129/55; PULSE 98; RESP 18; TEMP 36.6; O2SAT 94
[2018-08-21] MEDS: Atorvastatin Calcium 40 MG Tablet PO (22:01)
[2018-08-22] MEDS: Gabapentin 300 MG Capsule 900 MG PO ×3 (05:48→22:18)
[2018-08-22] MEDS: Enoxaparin 40 MG/0.4 ML Syringe SC (05:48)
[2018-08-22] MEDS: Acetaminophen 325 MG Tablet 650 MG PO (05:54)
[2018-08-22] MEDS: Famotidine 20 MG Tablet PO ×2 (08:31→22:18)
[2018-08-22] MEDS: Thiamine Hydrochloride 100 MG Tablet PO (08:31)
[2018-08-22] MEDS: Midodrine HCl 5 MG Tablet 2.5 MG PO ×3 (08:31→16:27)
[2018-08-22 08:48] VITALS: BP 110/62; PULSE 86; RESP 16; TEMP 36.8; O2SAT 95
--- NOTE | 2018-08-22 10:55 | PCM.PN.NEU ---
Subjective: Per nursing no issues overnight. Per patient tolerating therapies well and denies further questions or concerns. - Physical Exam General: Alert, Oriented x3, Cooperative HEENT: Atraumatic, PERRLA Oral: Moist Mucosa Neck: Supple, No JVD Lungs: Clear to auscultation, Normal air movement Cardiovascular: Regular rate, Regular Rhythm Abdomen: Bowel Sounds Present, Soft, Non Tender, - - Peg intact, without redness or drng Extremities: No clubbing, No cyanosis, No edema Skin: Incision - post tach site healing without redness or drng Neurological: Cranial nerves II-XII grossly intact Psych/Mental Status: Normal Affect, Appropriate, Alert and oriented to time, place, person, mood and affect Vital Signs Temp Pulse Resp BP Pulse Ox 98.2 F 86 16 110/62 95 08/22/18 08:48 08/22/18 08:48 08/22/18 08:48 08/22/18 08:48 08/22/18 08:48 Oxygen Delivery Method Room Air Weight: 45.7 kg Body Mass Index (BMI) 19.5 Intake and Output for Last 24 Hours 08/20/18 08/21/18 08/22/18 23:59 23:59 23:59 Intake Total 60 / 60 780 / 780 Balance 60 / 60 780 / 780 Medical Necessity - Tobacco Use Smoking Status: Former smoker - x 40 years, cessation 07/05/2018 Tobacco Use: Cigarettes Assessment/Plan The patient is a 62 year old F with PMH of tobacco use x 40 year history, cessation June 2018. 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 Patient was recently admitted to [facility] for CAP and hypoxic respiratory failure was treated with IV antibiotics and discharged on a 5-day course of Levaquin. Patient return to ER on July 05, 2018 for worsening SOA, lower extremity paresthesias and weakness. Was afebrile SPO2 98% and intact tympanic at 33 with/sniffs consistently less than -20 and ABG 7.38/49/72. She was intubated and was transferred to [facility] on 07/06/2018. 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 On 07/06/[address] done of head showed no evidence of acute cortical ischemia, mass-effect or intracranial hemorrhage. New enteric and endotracheal tubes are partially visualized. Dr. Kelly, Neurology consulted and patient was diagnosed with a AIDP. Received Plex treatments from 07/08-07/15 and IVIG from 07/16-07/20. On 07/14/2018, Portex tracheostomy size 7 was placed. On 07/15/2018, PEG placement was placed due to dysphagia. On 07/13/2018 NCS showed evidence of severe sensory and motor peripheral neuropathy without active dye limitation primary axonal pathology. Repeat of NCS/EMG on 07/29/2018 showed generalized, chronic, demyelinating sensory motor peripheral polyneuropathy, with secondary axonal loss and active denervation, consistent with AIDP. Patient weaned to trach collar on 07/22/2018. Patient had a cardiac cath on 07/08/2018 showed no CAD. Patient had a reduced EF 40 to 45%, diagnosis of Takotsubo cardiomyopathy, Dr. Wooten cadiologist was consulted and patient started on metoprolol, lisinopril and lipitor. On 07/24/2018 patient had tachycardia with tachypnea. CBC showing leukocytosis with retrocardiac opacity from chest x-ray. Sputum showed Pseudomonas putida. Blood cultures on 07/24/2018 NGTD. IV antibiotics and then changed to Levaquin p.o. x7 days, completed. Patient lives with his spouse in a trilevel home 6 steps for bedroom and bathroom. Patient was independent with all ADLs and transfers prior to hospital admission, but never did drive. Plan - PT for mobility - OT for ADLs - ST for dysphagia - Analgesics as needed - AIDP Plex treatment 07/08-07/15 and IVIG treatment 07/16-07/20/2018 - Acute respiratory failure Portex tracheostomy size 7 on 07/14/2018 and trach collar on 07/22/2018, Decannulated on 08/09/2018 by Tool Repairer Bench resolved - Takotsubo Cardiomyopathy on lipitor - Dysphagia peg placement on 07/15/2018, on Jevity and H2O flushes. Daily weight and I/O. Swallowing evaluation 08/09/18: Now diet regular soft textures with thin liquids. Monitor meal percentage intake and Jevity decreased per tools and parts attendant recommendations- Stone Driller Helper consult - Polyneuropathy on GBN - Left heel pressure Wound Stage I on admission- resolved - GI/DVT prophylaxis pepcid/lovenox, knee high lindsey hose, SCDs - Hypotension metoprolol and lisinopril d/c added midodrine. Patient needs to sit up at least 30 min to 60 min after taking midodrine. - Bowel protocol - Fall precautions - Medical management per Hospitalist- consult - F/U with PCP, cardiology, neurology
[2018-08-22 19:11] VITALS: BP 117/60; PULSE 97; RESP 16; TEMP 36.8; O2SAT 97
[2018-08-22 22:00] VITALS: RESP 17; O2SAT 97
[2018-08-22] MEDS: Atorvastatin Calcium 40 MG Tablet PO (22:18)
[2018-08-22] MEDS: Menthol/Lanolin/Calamine/Znox 113 GM Tube 1 APPLIC TOPICAL (22:18)
[2018-08-22] MEDS: oxyCODONE 5 MG Tablet PO (22:35)
[2018-08-23] MEDS: Gabapentin 300 MG Capsule 900 MG PO ×3 (05:53→22:17)
[2018-08-23] MEDS: Menthol/Lanolin/Calamine/Znox 113 GM Tube 1 APPLIC TOPICAL ×3 (05:53→22:18)
[2018-08-23] MEDS: Enoxaparin 40 MG/0.4 ML Syringe SC (05:53)
[2018-08-23 07:14] VITALS: BP 118/66; PULSE 78; RESP 17; TEMP 36.9; O2SAT 96
[2018-08-23] MEDS: Famotidine 20 MG Tablet PO ×2 (07:58→22:17)
[2018-08-23] MEDS: Midodrine HCl 5 MG Tablet 2.5 MG PO ×3 (07:58→16:19)
[2018-08-23] MEDS: Thiamine Hydrochloride 100 MG Tablet PO (07:58)
--- NOTE | 2018-08-23 09:35 | PCM.PN.NEU ---
Subjective: Per nursing no issues overnight. Per patient tolerating therapies well and denies further questions or concerns. - Physical Exam General: Alert, Oriented x3, Cooperative HEENT: Atraumatic, PERRLA Oral: Moist Mucosa Neck: Supple, No JVD Lungs: Clear to auscultation, Normal air movement Cardiovascular: Regular rate, Regular Rhythm Abdomen: Bowel Sounds Present, Soft, Non Tender, - - peg intact without redness or drng Extremities: No clubbing, No cyanosis, No edema Skin: - - post trach site healing, without redness or drng Neurological: Cranial nerves II-XII grossly intact, - - Motor strength RUE/LUE 5/5, LLE/RLE 4/5, relfexes absent to bilateral patellar and achiles Psych/Mental Status: Normal Affect, Appropriate, Alert and oriented to time, place, person, mood and affect Vital Signs Temp Pulse Resp BP Pulse Ox 98.4 F 78 17 118/66 96 08/23/18 07:14 08/23/18 07:14 08/23/18 07:14 08/23/18 07:14 08/23/18 07:14 Oxygen Delivery Method Room Air Weight: 45.7 kg Body Mass Index (BMI) 19.5 Intake and Output for Last 24 Hours 08/21/18 08/22/18 08/23/18 23:59 23:59 23:59 Intake Total 780 / 780 90 / 90 400 / 400 Balance 780 / 780 90 / 90 400 / 400 Medical Necessity - Tobacco Use Smoking Status: Former smoker - x 40 years, cessation 07/05/2018 Tobacco Use: Cigarettes Assessment/Plan The patient is a 62 year old F with PMH of tobacco use x 40 year history, cessation June 2018. 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 Patient was recently admitted to [facility] for CAP and hypoxic respiratory failure was treated with IV antibiotics and discharged on a 5-day course of Levaquin. Patient return to ER on July 05, 2018 for worsening SOA, lower extremity paresthesias and weakness. Was afebrile SPO2 98% and intact tympanic at 33 with/sniffs consistently less than -20 and ABG 7.38/49/72. She was intubated and was transferred to [facility] on 07/06/2018. 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 On 07/06/[address] done of head showed no evidence of acute cortical ischemia, mass-effect or intracranial hemorrhage. New enteric and endotracheal tubes are partially visualized. Dr. Kelly, Neurology consulted and patient was diagnosed with a AIDP. Received Plex treatments from 07/08-07/15 and IVIG from 07/16-07/20. On 07/14/2018, Portex tracheostomy size 7 was placed. On 07/15/2018, PEG placement was placed due to dysphagia. On 07/13/2018 NCS showed evidence of severe sensory and motor peripheral neuropathy without active dye limitation primary axonal pathology. Repeat of NCS/EMG on 07/29/2018 showed generalized, chronic, demyelinating sensory motor peripheral polyneuropathy, with secondary axonal loss and active denervation, consistent with AIDP. Patient weaned to trach collar on 07/22/2018. Patient had a cardiac cath on 07/08/2018 showed no CAD. Patient had a reduced EF 40 to 45%, diagnosis of Takotsubo cardiomyopathy, Dr. Wooten cadiologist was consulted and patient started on metoprolol, lisinopril and lipitor. On 07/24/2018 patient had tachycardia with tachypnea. CBC showing leukocytosis with retrocardiac opacity from chest x-ray. Sputum showed Pseudomonas putida. Blood cultures on 07/24/2018 NGTD. IV antibiotics and then changed to Levaquin p.o. x7 days, completed. Patient lives with his spouse in a trilevel home 6 steps for bedroom and bathroom. Patient was independent with all ADLs and transfers prior to hospital admission, but never did drive. Plan - PT for mobility - OT for ADLs - ST for dysphagia - Analgesics as needed - AIDP Plex treatment 07/08-07/15 and IVIG treatment 07/16-07/20/2018 - Acute respiratory failure Portex tracheostomy size 7 on 07/14/2018 and trach collar on 07/22/2018, Decannulated on 08/09/2018 by Fighter Pilot resolved - Takotsubo Cardiomyopathy on lipitor - Dysphagia peg placement on 07/15/2018, on Jevity and H2O flushes. Daily weight and I/O. Swallowing evaluation 08/09/18: Now diet regular soft textures with thin liquids. Monitor meal percentage intake and Jevity decreased per supervisor intelligence analyst recommendations- Inspector Repairer Sandstone consult - Polyneuropathy on GBN - Left heel pressure Wound Stage I on admission- resolved - GI/DVT prophylaxis pepcid/lovenox, knee high lindsey hose, SCDs - Hypotension metoprolol and lisinopril d/c added midodrine. Patient needs to sit up at least 30 min to 60 min after taking midodrine. - Bowel protocol - Fall precautions - Medical management per Hospitalist- consult - F/U with PCP, cardiology, neurology
[2018-08-23 19:11] VITALS: BP 103/64; PULSE 95; RESP 16; TEMP 36.8; O2SAT 94
[2018-08-23 20:35] VITALS: PULSE 95; RESP 16; O2SAT 94
[2018-08-23] MEDS: Atorvastatin Calcium 40 MG Tablet PO (22:16)
[2018-08-23] MEDS: oxyCODONE 5 MG Tablet PO (22:28)
[2018-08-24] MEDS: Gabapentin 300 MG Capsule 900 MG PO ×3 (05:30→19:39)
[2018-08-24] MEDS: Menthol/Lanolin/Calamine/Znox 113 GM Tube 1 APPLIC TOPICAL (05:31)
[2018-08-24] MEDS: Enoxaparin 40 MG/0.4 ML Syringe SC (05:31)
[2018-08-24 07:09] VITALS: BP 99/56; PULSE 84; RESP 16; TEMP 36.5; O2SAT 94
[2018-08-24] MEDS: Thiamine Hydrochloride 100 MG Tablet PO (09:26)
[2018-08-24] MEDS: Famotidine 20 MG Tablet PO ×2 (09:27→19:39)
[2018-08-24] MEDS: Midodrine HCl 5 MG Tablet 2.5 MG PO ×3 (09:27→17:00)
--- NOTE | 2018-08-24 12:59 | PCM.PN.NEU ---
Subjective: Per nursing no issues overnight. Per patient, continue to tolerate therapies and denies further questions or concerns. - Physical Exam General: Alert, Oriented x3 HEENT: Atraumatic, PERRLA Oral: Moist Mucosa Neck: Supple, No JVD Lungs: Clear to auscultation, Normal air movement Cardiovascular: Regular rate, Regular Rhythm Abdomen: Bowel Sounds Present, Soft, Non Tender, - - peg intact without redness or drng Extremities: No clubbing, No cyanosis, No edema Skin: Incision - post-trach site healed Neurological: Cranial nerves II-XII grossly intact, - - Motor strength RUE/LUE 5/5, LLE/RLE 4/5, relfexes absent to bilateral patellar and achiles Psych/Mental Status: Normal Affect, Appropriate, Alert and oriented to time, place, person, mood and affect Vital Signs Temp Pulse Resp BP Pulse Ox 97.7 F L 84 16 99/56 L 94 08/24/18 07:09 08/24/18 07:09 08/24/18 07:09 08/24/18 07:09 08/24/18 07:09 Oxygen Delivery Method Room Air Weight: 45.767 kg Body Mass Index (BMI) 19.5 Intake and Output for Last 24 Hours 08/22/18 08/23/18 08/24/18 23:59 23:59 23:59 Intake Total 120 / 120 490 / 490 480 / 480 Balance 120 / 120 490 / 490 480 / 480 Medical Necessity - Tobacco Use Smoking Status: Former smoker - x 40 years, cessation 07/05/2018 Tobacco Use: Cigarettes Assessment/Plan The patient is a 62 year old F with PMH of tobacco use x 40 year history, cessation June 2018. 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 Patient was recently admitted to [facility] for CAP and hypoxic respiratory failure was treated with IV antibiotics and discharged on a 5-day course of Levaquin. Patient return to ER on July 05, 2018 for worsening SOA, lower extremity paresthesias and weakness. Was afebrile SPO2 98% and intact tympanic at 33 with/sniffs consistently less than -20 and ABG 7.38/49/72. She was intubated and was transferred to [facility] on 07/06/2018. 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 On 07/06/[address] done of head showed no evidence of acute cortical ischemia, mass-effect or intracranial hemorrhage. New enteric and endotracheal tubes are partially visualized. Dr. Kelly, Neurology consulted and patient was diagnosed with a AIDP. Received Plex treatments from 07/08-07/15 and IVIG from 07/16-07/20. On 07/14/2018, Portex tracheostomy size 7 was placed. On 07/15/2018, PEG placement was placed due to dysphagia. On 07/13/2018 NCS showed evidence of severe sensory and motor peripheral neuropathy without active dye limitation primary axonal pathology. Repeat of NCS/EMG on 07/29/2018 showed generalized, chronic, demyelinating sensory motor peripheral polyneuropathy, with secondary axonal loss and active denervation, consistent with AIDP. Patient weaned to trach collar on 07/22/2018. Patient had a cardiac cath on 07/08/2018 showed no CAD. Patient had a reduced EF 40 to 45%, diagnosis of Takotsubo cardiomyopathy, Dr. Wooten cadiologist was consulted and patient started on metoprolol, lisinopril and lipitor. On 07/24/2018 patient had tachycardia with tachypnea. CBC showing leukocytosis with retrocardiac opacity from chest x-ray. Sputum showed Pseudomonas putida. Blood cultures on 07/24/2018 NGTD. IV antibiotics and then changed to Levaquin p.o. x7 days, completed. Patient lives with his spouse in a trilevel home 6 steps for bedroom and bathroom. Patient was independent with all ADLs and transfers prior to hospital admission, but never did drive. Plan - PT for mobility - OT for ADLs - ST for dysphagia - Analgesics as needed - AIDP Plex treatment 07/08-07/15 and IVIG treatment 07/16-07/20/2018 - Acute respiratory failure Portex tracheostomy size 7 on 07/14/2018 and trach collar on 07/22/2018, Decannulated on 08/09/2018 by Layboy Tender resolved - Takotsubo Cardiomyopathy on lipitor - Dysphagia peg placement on 07/15/2018, Daily weight and I/O. Swallowing evaluation 08/09/18: Now diet regular soft textures with thin liquids. Monitor meal percentage intake and Jevity decreased per chucking and boring machine operator recommendations- Forestry Aid Technician consult Flush peg bid to keep patent. - Polyneuropathy on GBN - Left heel pressure Wound Stage I on admission- resolved - GI/DVT prophylaxis pepcid/lovenox, knee high lindsey hose, SCDs - Hypotension metoprolol and lisinopril d/c added midodrine. Patient needs to sit up at least 30 min to 60 min after taking midodrine. - Bowel protocol - Fall precautions - Medical management per Hospitalist- consult - F/U with PCP, cardiology, neurology
--- NOTE | 2018-08-24 17:04 | PCA ---
brought her supper
--- NOTE | 2018-08-24 17:28 | NURSING ---
Patient's properly demonstrated how to flush peg tube.
[2018-08-24] MEDS: Atorvastatin Calcium 40 MG Tablet PO (19:38)
[2018-08-24 19:45] VITALS: BP 124/49; PULSE 89; RESP 16; TEMP 36.7; O2SAT 94
[2018-08-24] MEDS: oxyCODONE 5 MG Tablet PO (21:48)
--- NOTE | 2018-08-24 23:54 | NURSING ---
REVIEWED AND AGREE WITH IRRADIATED FUEL HANDLER'S FIM AND HANDOFF CHARTING.
[2018-08-25] MEDS: Enoxaparin 40 MG/0.4 ML Syringe SC (06:15)
[2018-08-25] MEDS: Gabapentin 300 MG Capsule 900 MG PO ×3 (06:16→20:44)
[2018-08-25] MEDS: Midodrine HCl 5 MG Tablet 2.5 MG PO ×3 (07:27→17:51)
[2018-08-25] MEDS: Famotidine 20 MG Tablet PO ×2 (07:27→20:44)
[2018-08-25] MEDS: Thiamine Hydrochloride 100 MG Tablet PO (07:27)
[2018-08-25 08:16] VITALS: BP 88/53; PULSE 86; RESP 18; TEMP 36.9; O2SAT 92
[2018-08-25 09:00] VITALS: BP 108/62
--- NOTE | 2018-08-25 09:28 | PN.NEURO_ITS ---
Subjective: Team meeting held today. Per PT, slight LOB with distraction with ambulation, but self corrected. Patient stand by assist with transfer and mobility. Per OT, stand by assist with all ADLs. SW discussed with patient and discharge will be on Wednesday08/27/18 with outpatient PT. Patient will be modified independent until discharge using a cane. Patient and spouse verbalized understanding. Spouse had nursing training regarding peg flushes. - Physical Exam General: Alert, Oriented x3, Cooperative HEENT: Atraumatic, PERRLA Oral: Moist Mucosa Neck: Supple, No JVD Lungs: Clear to auscultation, Normal air movement Cardiovascular: Regular rate, Regular Rhythm Abdomen: Bowel Sounds Present, Soft, Non Tender Extremities: No clubbing, No cyanosis, No edema Neurological: Cranial nerves II-XII grossly intact, Motor Exam 5/5 strength throughout - absent reflexes to achilles and petallar Psych/Mental Status: Normal Affect, Appropriate Vital Signs Temp Pulse Resp BP Pulse Ox 98.4 F 86 18 88/53 L 92 08/25/18 08:16 08/25/18 08:16 08/25/18 08:16 08/25/18 08:16 08/25/18 08:16 Oxygen Delivery Method Room Air Weight: 45.767 kg Body Mass Index (BMI) 19.5 Intake and Output for Last 24 Hours 08/23/18 08/24/18 08/25/18 23:59 23:59 23:59 Intake Total 490 / 490 660 / 660 360 / 360 Balance 490 / 490 660 / 660 360 / 360 Medical Necessity - Tobacco Use Smoking Status: Former smoker - x 40 years, cessation 07/05/2018 Tobacco Use: Cigarettes Assessment/Plan The patient is a 62 year old F with PMH of tobacco use x 40 year history, c essation June 2018. 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 Patient was recently admitted to [facility] for CAP and hypoxic respiratory failure was treated with IV antibiotics and discharged on a 5-day course of Levaquin. Patient return to ER on July 05, 2018 for worsening SOA, lower extremity paresthesias and weakness. Was afebrile SPO2 98% and intact tympanic at 33 with/sniffs consistently less than -20 and ABG 7.38/49/72. She was intubated and was transferred to [facility] on 07/06/2018. 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 On 07/06/[address] done of head showed no evidence of acute cortical ischemia, mass-effect or intracranial hemorrhage. New enteric and endotracheal tubes are partially visualized. Shannan Chanel rology consulted and patient was diagnosed with a AIDP. Received Plex treatments from 07/08-07/15 and IVIG from 07/16-07/20. On 07/14/2018, Portex tracheostomy size 7 was placed. On 07/15/2018, PEG placement was placed due to dysphagia. On 07/13/2018 NCS showed evidence of severe sensory and motor peripheral neuropathy without active dye limitation primary axonal pathology. Repeat of NCS/EMG on 07/29/2018 showed generalized, chronic, demyelinating sensory motor peripheral polyneuropathy, with secondary axonal loss and active denervation, consistent with AIDP. Patient weaned to trach collar on 07/22/2018. Patient had a cardiac cath on 07/08/2018 showed no CAD. Patient had a reduced EF 40 to 45%, diagnosis of Takotsubo cardiomyopathy, Dr. Wooten cadiologist was consulted and patient started on metoprolol, lisinopril and lipitor. On 07/24/2018 patient had tachycardia with tachypnea. CBC showing leukocytosis with retrocardiac opacity from chest x-ray. Sputum showed Pseudomonas putida. Blo od cultures on 07/24/2018 NGTD. IV antibiotics and then changed to Levaquin p.o. x7 days, completed. Patient lives with his spouse in a trilevel home 6 steps for bedroom and bathroom. Patient was independent with all ADLs and transfers prior to hospital admission, but never did drive. Plan - PT for mobility - OT for ADLs - ST for dysphagia - Analgesics as needed - AIDP Plex treatment 07/08-07/15 and IVIG treatment 07/16-07/20/2018 - Acute respiratory failure Portex tracheostomy size 7 on 07/14/2018 and trach collar on 07/22/2018, Decannulated on 08/09/2018 by Spotlight Operator resolved - Takotsubo Cardiomyopathy on lipitor - Dysphagia peg placement on 07/15/2018, Daily weight and I/O. Swallowing evaluation 08/09/18: Now diet regular soft textures with thin liquids. Monitor meal percentage intake and Jevity decreased per waterproofing supervisor recommendations- Social Worker Assistant consult Flush peg bid to keep patent. - Polyneuropathy on GBN - Left heel pressure Wound Stage I on admission- resolved - GI/DVT prophylaxis pepcid/lovenox, knee high lindsey hose, SCDs - Hypotension metoprolol and lisinopril d/c added midodrine. Patient needs to sit up at least 30 min to 60 min after taking midodrine. - Bowel protocol - Fall precautions - Medical management per Hospitalist- consult - F/U with PCP, cardiology, neurology discharge on 08/27 with outpatient PT.
--- NOTE | 2018-08-25 10:29 | CASEMGMT ---
Social Work IDT met with patient and spouse for Team meeting. Discussed patient progressing well in therapy, using cane independently. IDT recommending discharge with outpatient PT - pt agreeable to DC 08/27. Pt owns cane and requesting PT at [facility] in [place]. Referral made to [facility] - appt scheduled for 08/31 at 3:15 pm. Plan: DC home with spouse 08/27 with Outpatient PT at [facility]. EVA AcostaW
--- NOTE | 2018-08-25 11:52 | CASEMGMT ---
Social Work PHQ-9 completed - scored 2. No resources provided. Nikki Buitrago, FISCAL AGENT SOUS CHEF KITCHEN MANAGER
[2018-08-25 20:22] VITALS: BP 114/71; PULSE 102; RESP 16; TEMP 36.8; O2SAT 96
[2018-08-25] MEDS: Atorvastatin Calcium 40 MG Tablet PO (20:43)
[2018-08-25] MEDS: oxyCODONE 5 MG Tablet PO (20:44)
--- NOTE | 2018-08-26 04:27 | NURSING ---
Reviewed and agree with LPNs fims and handoff
[2018-08-26] MEDS: Gabapentin 300 MG Capsule 900 MG PO ×3 (06:48→21:17)
[2018-08-26] MEDS: Enoxaparin 40 MG/0.4 ML Syringe SC (06:48)
[2018-08-26 08:50] VITALS: BP 103/64; PULSE 85; RESP 16; TEMP 36.6; O2SAT 94
[2018-08-26] MEDS: Thiamine Hydrochloride 100 MG Tablet PO (09:20)
[2018-08-26] MEDS: Midodrine HCl 5 MG Tablet 2.5 MG PO ×3 (09:20→16:12)
[2018-08-26] MEDS: Famotidine 20 MG Tablet PO ×2 (09:22→21:17)
--- NOTE | 2018-08-26 15:56 | DS.PCM_ITS ---
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 Per patient tolerating therapies and is modified independent, gait steady. Patient voiced she is ready to be discharged home on 08/27/18. Denies further questions or concerns. - Physical Exam General: Alert, Oriented x3, Cooperative HEENT: Atraumatic, PERRLA Oral: Moist Mucosa Neck: Supple, No JVD Lungs: Clear to auscultation, Normal air movement Cardiovascular: Regular rate, Regular Rhythm Abdomen: Bowel Sounds Present, Soft, Non Tender, - - peg intact, without redness or drng Extremities: No clubbing, No cyanosis, No edema Neurological: Cranial nerves II-XII grossly intact, Motor Exam 5/5 strength throughout - absent reflexes to achilles and patellar Psych/Mental Status: Normal Affect, Appropriate, Alert and oriented to time, place, person, mood and affect Vital Signs Temp Pulse Resp BP Pulse Ox 97.9 F 85 16 103/64 94 08/26/18 08:50 08/26/18 08:50 08/26/18 08:50 08/26/18 08:50 08/26/18 08:50 Oxygen Delivery Method Room Air Weight: 45.983 kg Body Mass Index (BMI) 19.5 Intake and Output for Last 24 Hours 08/24/18 08/25/18 08/26/18 23:59 23:59 23:59 Intake Total 660 / 660 790 / 790 Balance 660 / 660 790 / 790 Discharge Diet: No Restrictions Discharge Activity: Return to Normal Activity, May Not Drive, May Shower, - - cane Weight Bearing Status: Weight bearing as tolerated Call your doctor if you observe: Fever of 101 or Higher, Coldness, Increased Pain, Numbness or Tingling, Change in Color, Inability to urinate, Inability to have a bowel movement, Shortness of breath, Dizziness, Fainting spells, Swelling in the ankles, Chest pain, Prolonged hiccoughing, Increased palpitations (irregular heartbeat), Calf discomfort, Uncontrolled pain Home Medications: Medications to take at Discharge Acetaminophen [Tylenol Tablet] 650 mg PO Q4H PRN PRN tablet 08/26/18 Atorvastatin Calcium [Lipitor] 40 mg PO QHS #30 tab 08/26/18 Famotidine [Pepcid] 20 mg PO BID #60 tab 08/26/18 Gabapentin [Neurontin] 900 mg PO TID #270 cap 08/26/18 Midodrine HCl [Proamatine] 2.5 mg PO 08,12,16 #45 tab 08/26/18 Thiamine Hydrochloride [Vitamin B1] 100 mg PO DAILY #30 tab 08/26/18 Following Prescrptions Were Given to Patient: Atorvastatin Calcium [Lipitor] 40 mg PO QHS #30 tab Transmission Status: Pending to [facility] Gabapentin [Neurontin] 900 mg PO TID #270 cap Transmission Status: Pending to [facility] Famotidine [Pepcid] 20 mg PO BID #60 tab Transmission Status: Pending to [facility] Midodrine HCl [Proamatine] 2.5 mg PO 08,12,16 #45 tab Transmission Status: Pending to [facility] Thiamine Hydrochloride [Vitamin B1] 100 mg PO DAILY #30 tab Transmission Status: Pending to [facility] Please Follow Up With: Cori Andrews DO Please Follow Up With: [facility] PT Please Follow Up With: Cardiology Please Follow Up With: Neurology Please Follow Up With: [facility] Disposition: Home Patient Condition:: Stable Rehab Course The patient is a 62 year old F with PMH of tobacco use x 40 year history, cessation June 2018. 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 Patient was recently admitted to [facility] for CAP and hypoxic respiratory failure was treated with IV antibiotics and discharged on a 5-day course of Levaquin. Patient return to ER on July 05, 2018 for worsening SOA, lower extremity paresthesias and weakness. Was afebrile SPO2 98% and intact tympanic at 33 with/sniffs consistently less than -20 and ABG 7.38/49/72. She was intubated and was transferred to [facility] on 07/06/2018. 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 On 07/06/[address] done of head showed no evidence of acute cortical ischemia, mass-effect or intracranial hemorrhage. New enteric and endotracheal tubes are partially visualized. Dr. Kelly, Neurology consulted and patient was diagnosed with a AIDP. Received Plex treatments from 07/08-07/15 and IVIG from 07/16-07/20. On 07/14/2018, Portex tracheostomy size 7 was placed. On 07/15/2018, PEG placement was placed due to dysphagia. On 07/13/2018 NCS showed evidence of severe sensory and motor peripheral neuropathy without active dye limitation primary axonal pathology. Repeat of NCS/EMG on 07/29/2018 showed generalized, chronic, demyelinating sensory motor peripheral polyneuropathy, with secondary axonal loss and active denervation, consistent with AIDP. Patient weaned to trach collar on 07/22/2018. Patient had a cardiac cath on 07/08/2018 showed no CAD. Patient had a reduced EF 40 to 45%, diagnosis of Takotsubo cardiomyopathy, Dr. Wooten cadiologist was consulted and patient started on metoprolol, lisinopril and lipitor. On 07/24/2018 patient had tachycardia with tachypnea. CBC showing leukocytosis with retrocardiac opacity from chest x-ray. Sputum showed Pseudomonas putida. Blood cultures on 07/24/2018 NGTD. IV antibiotics and then changed to Levaquin p.o. x7 days, completed. Patient lives with his spouse in a trilevel home 6 steps for bedroom and bathroom. Patient was independent with all ADLs and tra nsfers prior to hospital admission, but never did drive. During rehab course patient's trach was decannulated on 08/09/2018 by creative developer and area healed without distress. Dysphagia resolved and spouse was trained how to flush peg tube bid to keep patent. Metoprolol and lisonpril was discontinued d/t hypotension and was started on midodrine 2.5 TID on 08/12/2018, which blood pressure is stable. Left heel pressure wound stage I healed. Patient to f/u with PCP, cardiology, neurology and [facility] for peg discontinuation at their discretion. Patient gained increased strength, mobility, ADLS, and dysphagia resolved. Meaningful Use Info Meaningful Use Diagnoses (Choose all that apply): None applicable
--- NOTE | 2018-08-26 16:09 | PCM.DC ---
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 You will use the following diet at home:: No restrictions Your food should be the consistency of: Regular Your liquids should be the consistency of: Regular/Thin Discharge Activity: Return to Normal Activity, May Not Drive, May Shower, - - cane Weight Bearing Status: Weight bearing as tolerated Call your doctor if you observe: Fever of 101 or Higher, Coldness, Increased Pain, Numbness or Tingling, Change in Color, Inability to urinate, Inability to have a bowel movement, Shortness of breath, Dizziness, Fainting spells, Swelling in the ankles, Chest pain, Prolonged hiccoughing, Increased palpitations (irregular heartbeat), Calf discomfort, Uncontrolled pain Allergies/Adverse Reactions: Allergies No Known Allergies Allergy (Verified 08/07/18 13:05) Medications to take at Discharge Acetaminophen [Tylenol Tablet] 650 mg PO Q4H PRN PRN tablet 08/26/18 Atorvastatin Calcium [Lipitor] 40 mg PO QHS #30 tab 08/26/18 Famotidine [Pepcid] 20 mg PO BID #60 tab 08/26/18 Gabapentin [Neurontin] 900 mg PO TID #270 cap 08/26/18 Midodrine HCl [Proamatine] 2.5 mg PO 08,12,16 #45 tab 08/26/18 Thiamine Hydrochloride [Vitamin B1] 100 mg PO DAILY #30 tab 08/26/18 The following prescriptions were given: Atorvastatin Calcium [Lipitor] 40 mg PO QHS #30 tab Transmission Status: Pending to [facility] Gabapentin [Neurontin] 900 mg PO TID #270 cap Transmission Status: Pending to [facility] Famotidine [Pepcid] 20 mg PO BID #60 tab Transmission Status: Pending to [facility] Midodrine HCl [Proamatine] 2.5 mg PO 08,12,16 #45 tab Transmission Status: Pending to [facility] Thiamine Hydrochloride [Vitamin B1] 100 mg PO DAILY #30 tab Transmission Status: Pending to [facility] Test Results: Test results from this visit will be discussed in further detail at your follow-up appointment, if applicable. Please Follow Up With: Cori Andrews DO Please Follow Up With: [facility] Outpatient PT Please Follow Up With: Cardiology Please Follow Up With: Neurology Please Follow Up With: [facility] Proposed Discharge Date: 08/27/18
[2018-08-26 21:08] VITALS: BP 121/60; PULSE 79; RESP 18; TEMP 36.5; O2SAT 96
[2018-08-26] MEDS: Atorvastatin Calcium 40 MG Tablet PO (21:17)
[2018-08-26] MEDS: oxyCODONE 5 MG Tablet PO (21:17)
[2018-08-27] MEDS: Gabapentin 300 MG Capsule 900 MG PO (06:27)
[2018-08-27 08:41] VITALS: BP 103/81; PULSE 87; RESP 16; TEMP 36.2; O2SAT 97
[2018-08-27] MEDS: Midodrine HCl 5 MG Tablet 2.5 MG PO (09:43)
[2018-08-27] MEDS: Thiamine Hydrochloride 100 MG Tablet PO (09:44)
[2018-08-27] MEDS: Famotidine 20 MG Tablet PO (09:44)
--- NOTE | 2018-08-27 10:21 | NURSING ---
This RN went over DC info, medications, peg flush, appts. pt verbalized understanding. Pt. discharged home with spouse, with all personal belongings, in stable condition.
[2018-08-27 10:23] VITALS: BP 103/81; PULSE 87; RESP 16; TEMP 36.2; O2SAT 97
== END 2018-08-27 10:26 | disposition home or self-care (01) | DRG 948 ==
PROVIDERS: Nurse Practitioner Family; Admitting Provider Psychiatry & Neurology Neurology; Visit Provider Internal Medicine
DX: R53.81 Other malaise (principal); G61.81 Chronic inflammatory demyelinating polyneuritis; Z68.1 Body mass index [BMI] 19.9 or less, adult; E44.0 Moderate protein-calorie malnutrition; I11.9 Hypertensive heart disease without heart failure; L89.621 Pressure ulcer of left heel, stage 1; R13.12 Dysphagia, oropharyngeal phase; Z86.12 Personal history of poliomyelitis; Z87.01 Personal history of pneumonia (recurrent); Z93.1 Gastrostomy status; E78.5 Hyperlipidemia, unspecified; G89.29 Other chronic pain; Z87.891 Personal history of nicotine dependence; Z93.0 Tracheostomy status; I95.9 Hypotension, unspecified
CPT/HCPCS: 36415; 74230; 80048; 80061; 80076; 85025; 92526; 92610; 92611; 97110; 97112; 97116; 97140; 97162; 97166; 97530; 97535; 97802; 97803; 99406; J7030

== ENCOUNTER → 2018-10-31 12:53 | Outpatient (CLI) | payer MEDICARE, BC, SELFPAY ==
[2018-10-13 11:16] VITALS: BMI 19.1
--- NOTE | 2018-10-31 12:54 | ECHOD_ITS ---
Reason For Study: Cardiomyopathy Procedure This was a 2D Doppler, Color Flow transthoracic echocardiogram. The exam was of adequate technical quality. Exam performed in department. Left Ventricle Normal LV size. Left ventricular systolic function is normal. The estimated ejection fraction is 60 %. No evidence for diastolic dysfunction. No regional wall motion abnormalities noted. Right Ventricle Normal RV size. Normal systolic function. Atria Normal left atrium. Normal right atrium. No doppler evidence for ASD. Mitral Valve There is moderate mitral annular calcification. Chordal systolic anterior motion of the mitral valve. Mild (1+) mitral valve insufficiency. Tricuspid Valve Normal tricuspid valve. Trivial tricuspid valve insufficiency. Right ventricular systolic pressure estimated to be 29 mmHg. Aortic Valve Trisinus/trileaflet aortic valve. Normal aortic valve. Pulmonic Valve The pulmonic valve is not well visualized. Great Vessels Normal sized aortic root. Calcified aortic root. Pericardium/Pleural No pericardial effusion. MMode/2D Measurements & Calculations LVIDd: 3.1 cm IVSd: 0.94 cm Ao root diam: 3.3 cm LVIDs: 2.1 cm LVPWd: 0.90 cm RVDd: 2.8 cm FS: 34.2 % LAV(MOD-bp): 34.8 ml LA A4 area: 13.8 cm2 LA dimension(2D): 3.1 cm LAV(MOD-bp) Indexed: 24.3 ml/m2 LAV(MOD-sp2): 29.8 ml LAV(MOD-sp4): 35.1 ml RA A4 area: 10.4 cm2 Doppler Measurements & Calculations MV E max césar: 75.2 cm/sec Lat Peak E' César: 7.6 cm/sec Med Peak E' César: 6.0 cm/sec MV A max césar: 93.3 cm/sec E/E' lat: 9.9 E/E' med: 12.5 MV E/A: 0.81 Ao V2 max: 123.4 cm/sec LV V1 max: 115.1 cm/sec PA V2 max: 78.8 cm/sec Ao max P.1 mmHg LV V1 max P.3 mmHg TR max césar: 256.1 cm/sec TR max P.3 mmHg Interpretation Summary Left ventricular systolic function is normal. The estimated ejection fraction is 60 %. There is moderate mitral annular calcification. Chordal systolic anterior motion of the mitral valve. Mild (1+) mitral valve insufficiency. Trivial tricuspid valve insufficiency. Calcified aortic root. Right ventricular systolic pressure estimated to be 29 mmHg. No evidence for diastolic dysfunction. Ordering Physician: Matthew Pablo Referring Physician: Cori Andrews Performed By: Agustina Conrad RDCS
== END ==
PROVIDERS: Family Provider Internal Medicine; PCP Internal Medicine; Referring Provider Internal Medicine Cardiovascular Disease; Visit Provider Internal Medicine Cardiovascular Disease
DX: I51.81 Takotsubo syndrome (principal); R42 Dizziness and giddiness; I42.9 Cardiomyopathy, unspecified
CPT/HCPCS: 93225; 93226; 93306